=== PATIENT | male | born 1940 | race Caucasian/White ===

== ENCOUNTER 2024-05-23 02:42 | Inpatient (IN) | payer MEDICARE, SELFPAY ==
[2024-05-23] VITALS (33 sets, daily range): BP systolic 106–140; BP diastolic 50–85; PULSE 60–91; RESP 18–28; TEMP 36.4–36.8; O2SAT 69–97; BMI 19.5
--- NOTE | ~2024-05-23 | CT_ITS ---
EXAMINATION: CT diagnostic chest wo con DATE: 05/23/2024 08:30 INDICATION: Hypoxia. TECHNIQUE: Computed tomography (CT) of the chest was performed without intravenous contrast. The dose -length product was 270.42 mGy-cm. Automated exposure control and iterative reconstruction technique were employed. COMPARISON: Chest x-ray dated 05/23/2024 FINDINGS: There is extensive consolidation of the left upper, lower and right lower lobes, consistent with pneumonia. There are multiple pulmonary nodules in the right upper lobe, largest measuring 2.2 cm. There is mediastinal shift to the left. There is emphysema. There is a fissural nodule on the rig ht measuring 1.4 x 0.8 cm. There is right hydronephrosis containing high density material which may r epresent previously administered contrast. There are coarse calcifications in the left upper lobe, li tru pancreatic. There are calcified granulomas of the spleen. There is a hiatal hernia. Status post median sternotomy for CABG. There is a partially visualized endovascular stent in the aorta. There ar e multiple thoracic wedge compression fractures, most likely chronic. IMPRESSION: 1. Right upper lobe nodules measuring up to 2.2 cm, suspicious for metastatic disease. 2: Multifocal consolidation, consistent with pneumonia. 3: Bilateral pleural effusions, left greater than right. 4: Right hydronephrosis. Reviewed, dictated and finalized at location A. SERVICES PROFESSIONAL IMPRESSION: 1. Right upper lobe nodules measuring up to 2.2 cm, suspicious for metastatic d isease. 2: Multifocal consolidation, consistent with pneumonia. 3: Bilateral pleural effusions, left greater than right. 4: Right hydronephrosis.
--- NOTE | ~2024-05-23 | US_ITS ---
EXAMINATION: US renal BI DATE: 05/23/2024 19:37 INDICATION: Right hydronephrosis. TECHNIQUE: Multiple ultrasound grayscale images of the kidneys were obtained. COMPARISON: CT chest 05/23/2024 FINDINGS: The right kidney measures 12.0 x 5.0 x 6.0 cm. The left kidney measures 11.1 x 4.6 x 5.9 cm. The righ t kidney demonstrates increased parenchymal echogenicity, consistent with nephropathy. There is a 4.7 cm cyst in right kidney. There is severe right hydronephrosis. The bladder is normal. There is a sma ll volume of ascites. Calcifications in the spleen are consistent with old granulomatous disease. IMPRESSION: 1. Severe right hydronephrosis. Increased right renal parenchymal echogenicity, consistent with neph ropathy. 2. Small volume of ascites. Reviewed, dictated and finalized at location A. GATOR SHEAR OPERATOR IMPRESSION: 1. Severe right hydronephrosis. Increased right renal parenchymal echogenicity , consistent with nephropathy. 2. Small volume of ascites.
--- NOTE | ~2024-05-23 | XR_ITS ---
XR chest 1V portable 05/23/2024 03:37 Indication: Shortness of breath Procedure: AP portable chest Comparison: No prior studies for comparison. Findings: Status post median sternotomy for CABG. Extensive bilateral airspace disease bilateral. Sma ll left pleural effusion. Masslike density overlying the right hilum, suspicious for malignancy. No p neumothorax. Possible left clavicular fracture, incompletely visualized. Osteopenia. Impression: 1: Masslike density overlying the right hilum, suspicious for malignancy. 2: Extensive bilateral airspace consolidation which may represent pneumonia or edema. 3: Small left pleural effusion. 4: Possible left clavicular fracture, although incompletely visualized. Reviewed, dictated and finalized at location A. PLE JACK Impression: 1: Masslike density overlying the right hilum, suspicious for malignancy. 2: Extensive bilateral airspace consolidation which may represent pneumonia or edema. 3: Small left pleural effusion. 4: Possible left clavicular fracture, although incompletely visualized.
--- NOTE | ~2024-05-23 | CT_ITS ---
EXAMINATION: CT abdomen pelvis wo con DATE: 05/23/2024 21:35 INDICATION: Hydronephrosis. TECHNIQUE: Computed tomography (CT) of the abdomen and pelvis was performed without intravenous contr ast. Automated exposure control and iterative reconstruction technique were employed. The dose-length product was 641.23 mGy-cm. COMPARISON: Chest CT 05/23/2024 FINDINGS: The visualized portions of lung bases demonstrate scattered nodules and airspace opacities. Emphysema is noted. There is a small right and moderate-sized left pleural effusions. The heart size is normal. There are coronary artery calcifications. No pericardial effusion. 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 There is material in the esophagus. Calcifications in the liver and spleen are consistent with old granulomatous disease. The gallbladder is normal in s ize. 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 T he pancreas and adrenal glands are normal. There are cysts in right kidney measuring up to 6.4 cm. Th ere is severe right hydronephrosis and hydroureter. There is hyperdense urine in the right ureter. Th ere are 3 stones in left kidney measuring up to 3 mm. Stool distends the rectum. There is diverticulo sis of the colon without evidence of diverticulitis. The appendix is normal. There is a large volume of stool in the colon. There is a small volume of ascites. Body wall edema is noted. There is interna l fixation of proximal right femur. There is an old healed fracture of right inferior pubic ramus. Th ere are fractures of left superior and inferior pubic rami, likely subacute. There is a comminuted fr acture of left acetabulum with early callus formation. There is severe lumbar spondylosis. There is a burst fracture of L2. There is a chronic burst fracture of L1. There is a left 10th rib fracture. Th ere is a healing left eighth rib fracture. IMPRESSION: 1. Diffuse lung disease, consistent with multifocal pneumonia, left worse than right. 2. Small right and moderate-sized left pleural effusions. 3. Severe right hydronephrosis and hydroureter. Hyperdense urine may be secondary to prior contrast a dministration or hematuria. 4. Small volume of ascites. 5. Subacute comminuted fractures of left acetabulum and left superior and inferior pubic rami. 6. Acute versus subacute left 10th rib fracture. 7. L2 burst fracture, likely acute or subacute. 8. Large volume of stool in the colon with distention of the rectum. Reviewed, dictated and finalized at location A. ATTENDANT IMPRESSION: 1. Diffuse lung disease, consistent with multifocal pneumonia, left worse than right. 2. Small right and moderate-sized left pleural effusions. 3. Severe right hydronephrosis and hydroureter. Hyperdense urine may be seconda ry to prior contrast administration or hematuria. 4. Small volume of ascites. 5. Subacute comminuted fractures of left acetabulum and left superior and infer ior pubic rami. 6. Acute versus subacute left 10th rib fracture. 7. L2 burst fracture, likely acute or subacute. 8. Large volume of stool in the colon with distention of the rectum.
--- NOTE | 2024-05-23 02:54 | ED.SOB ---
HPI - SOB/Dyspnea General Chief Complaint: Shortness of Breath/Dyspnea Stated Complaint: hypoxia Time Seen by Provider: 05/23/24 02:53 Source: patient, EMS and RN notes reviewed Mode of arrival: EMS History of Present Illness HPI Narrative: EMS notes that they were called for patient with shortness of breath who was initially hypoxic, saturating in the 70s on room air. History of COPD, supposed to be on oxygen but it was off and he reportedly keeps taking it off. He was initially altered, alert oriented x2. He denies any diarrhea. He is a new patient to the facility where he is coming from, having just been admitted yesterday. EMS noted that he improved 88% on 15 L non-rebreather mask. He had complained of pain all over although this appears to be chronic. He also has wounds all over. He notes that he has to have a bowel movement and he states that he has these frequently although they are formed, denies diarrhea. Patient states for his history of COPD he has never required BiPAP. He denies any chest pain but he has had a cough. It is initially unclear if patient is on anticoagulation. Related Data Allergies Allergy/AdvReac Type Severity Reaction Status Date / Time adhesive tape Allergy Unknown Verified 05/23/24 03:32 baclofen Allergy Unknown Verified 05/23/24 03:32 celecoxib Allergy Unknown Verified 05/23/24 03:32 clopidogrel (From Plavix) Allergy Unknown Verified 05/23/24 03:32 Iodinated Contrast Media Allergy Unknown Verified 05/23/24 03:32 isosorbide Allergy Unknown Verified 05/23/24 03:32 ketorolac Allergy Unknown Verified 05/23/24 03:32 rofecoxib Allergy Unknown Verified 05/23/24 03:32 tramadol Allergy Unknown Verified 05/23/24 03:32 [facility] Past Medical History Medical History Other hyperlipidemia residential (current) use of antibiotics residential (current) use of anticoagulants Localized swelling, mass and lump, unspecified Other constipation Gastro-esophageal reflux disease without esophagitis Other secondary hypertension Chronic pain syndrome Vitamin D deficiency, unspecified Hypoxia O2 dependent COPD (chronic obstructive pulmonary disease) Hip fracture, left Social History Social History Social History: Never Code Status: No CPR per half-way documentation; patient also states no intubation in conversation 05/23/24 Smoking status: Current every day smoker Living arrangements: half-way Additional living arrangements comments: [facility] since 05/22/24 Occupation/Education: retired Spiritual care concerns: No (Holiness) Exam Narrative: GENERAL: Chronically ill-appearing, HEAD: Normocephalic, atraumatic. EYES: Non injected, non icteric ENT: Nares clear, no rhinorrhea or epistaxis. NECK: Supple. CHEST: Speaking in full sentences. Tachypneic. Coarse breath sounds though poor air movement HEART: Regular rate and rhythm. ABDOMEN: Soft, nondistended. EXTREMITIES: Normal range of motion. RUE edema. SKIN: Warm, dry. Multiple scattered wounds/abrasions, many weeping. NEURO: No focal deficits. Alert and oriented x4 for questions asked by RN at bedside. PSYCH: Congruent mood and affect. Cantankerous. Course Vital Signs Vital signs: Vital Signs Temperature 97.6 F 05/23/24 02:48 Pulse Rate 88 05/23/24 02:48 Respiratory Rate 26 H 05/23/24 02:48 Blood Pressure 140/85 05/23/24 02:48 Pulse Oximetry 86 L 05/23/24 02:48 Oxygen Delivery Non-Rebreather Mask 05/23/24 02:48 Oxygen Flow Rate 15 05/23/24 02:48 Temperature 97.6 F 05/23/24 07:00 Pulse Rate 88 05/23/24 08:00 Respiratory Rate 27 H 05/23/24 08:00 Blood Pressure 137/66 05/23/24 08:00 Pulse Oximetry 90 05/23/24 08:00 Oxygen Delivery Room Air 05/23/24 06:58 Oxygen Flow Rate 15 05/23/24 02:48 MDM - SOB/Dyspnea MDM Narrative Medical decision making narrative: Patient presents with report of shortness of breath and hypoxia, initially saturating in the 70s on room air at which time he was alert oriented x2 upon EMS assessment. He denies any chest pain but states that he has had a cough. He has a history of COPD and is supposed to be on supplemental oxygen although reportedly keeps taking it off. In the emergency department he is afebrile with vital signs notable for tachypnea as well as hypoxia even on NRB. Patient is alert and oriented x4 and thus able to make his own decisions. He does not otherwise appear altered at this time although he had been confused and altered for EMS prior to oxygen being placed. penitentiary documentation lists no CPR. When patient is explicitly asked, he states he does not want CPR, would not want intubation or mechanical ventilation. He has never required BiPAP for his COPD previously and he states he WOULD NOT want this, repeatedly saying NO loudly. I won't repeat it again. I reassessed and discussed with patient the need for wearing oxygen. He initially verifies understanding and is amenable to be replacing this. We discussed that given he is refusing several interventions and if his oxygen saturation continues to decline, his brain and other organs will not get the oxygen and nutrients that they need and he will . He verifies understanding. When asked what can be done to make him more comfortable, he demands cold Sprite in addition to luana crackers. These are provided. He then requests milk. Normocytic anemia. BNP is elevated suggestive of heart failure. Chest x-ray is with multiple findings, inconclusive. CT chest without contrast (given allergy) is ordered as is a NM scan given elevated dimer. However, patient is refusing all further work up measures/medications/etc. We discussed that he is likely to with a time period relatively quickly especially if he continues to take his oxygen off. He is able to verify that he understands the severity of his condition. We discussed the possibility of getting care coordination and hospice involved. He states he has heard of hospice before but does not want them. He is fine with dying either in the ED if it occurs or being admitted and passing while hospitalized. When we discussed being admitted by calling the economic historian hospitalist, he states Do it now. Discussed with hospitalist Dr Mcneal who recommends getting care coordination to discuss discharging back to facility with comfort measures whether with or not on hospice. Discussed with care coordination Jennifer. At this time however, patient is calm and courteous. He states he does want to get better and would be fine with any medications or imaging to pursue further workup. I did reassess patient at bedside and patient is somewhat somnolent however arouses to verbal stimuli and is able to say on multiple occasions that he is fine with proceeding with further workup. I talked with him about the various options and had him talk back in terms of what had been explained. He clearly stated I want further investigation. CT chest is re-ordered. Will defer ordering NM study as, at this time, I can see that patient is on Eliquis (apixaban) and [facility] does list chronic use of anticoagulation. He has presumably been receiving this medication while he was hospitalized and while briefly admitted at [facility]. Thus, less likely PE. CT scan shows bilateral pleural effusions as well as pneumonia. Will initiate broad-spectrum antibiotics in the form of vancomycin, ceftriaxone, and azithromycin. Patient is again discussed with on-call hospitalist Dr Mcneal. I reassess the patient and told him that his CT scan shows pneumonia. I discussed that we would still continue to honor his wishes of no CPR or intubation but could attempt to aggressively fight this infection with antibiotics. He does tell the nurse that if needed he would be open to BIPAP. We also discussed the findings of the mass/nodules on his CT scan. He states this is new to him and he was not aware of this previously and has had no prior workup for this. He concludes the interaction saying Thank you, doctor. We discussed that his hip fracture and chronic pain also need addressed with pain medication; BP ok so oxy ordered. PRN bipap order placed. Patient will require IMU admission. Differential Diagnosis Differential diagnosis: Likely acute exacerbation of chronic obstructive airways disease, congestive heart failure, community acquired pneumonia, pulmonary embolism (considered (see above)) and other (acute viral syndrome) Lab Data Attestation: I reviewed the patient's lab results. 05/23/24 03:14 05/23/24 03:14 Labs: Lab Results 05/23/24 Range/Units 03:14 WBC 7.0 (4.5-10.0) K/mm3 RBC 3.71 L (4.6-6.20) M/mm3 Hgb 11.2 L (14.0-18.0) g/dL Hct 34.8 L (42.0-52.0) % MCV 93.8 (80-100) fl MCH 30.2 (26-34) pg MCHC 32.2 (32-36) g/dl RDW 17.1 H (11.5-14.5) % Plt Count 197 (150-375) k/mm3 MPV 9.1 (7.4-10.4) fl Immature Gran % (Auto) 0.6 H (0-0.5) % Neut % (Auto) 78.8 H (45.5-73.1) % Lymph % (Auto) 14.8 L (18.3-44.2) % Mcculloch % (Auto) 4.9 (2.6-8.5) % Eos % (Auto) 0.6 (0-4.4) % Baso % (Auto) 0.3 (0.2-1.2) % Lymph # (Auto) 1.03 (0.9-3.2) K/mm3 Mcculloch # (Auto) 0.3 (0.1-0.6) K/mm3 Eos # (Auto) 0.0 (0-0.3) K/mm3 Baso # (Auto) 0.0 (0.0-0.1) K/mm3 Abs Immat Gran (auto) 0.04 H (0.00-0.031) K/mm3 Absolute Neuts (auto) 5.5 (1.3-6.7) K/mm3 Absolute Nucleated RBC 0.000 (0.0-0.012) K/mm3 Nucleated RBC % 0.0 (0.0-0.2) % D-Dimer 6.02 H (<0.48) ug/mL Sodium 138 (137-145) mmol/L Potassium 4.1 (3.4-5.0) mmol/L Chloride 105 (98-107) mmol/L Carbon Dioxide 26 (22-30) mmol/L Anion Gap 7 (4-12) mmol/L BUN 19 (9-20) mg/dL Creatinine 1.08 (0.7-1.3) mg/dL Estim Creat Clear Calc 44 ml/min Estimated GFR > 60 (59 - ) Glucose 118 H (65-110) mg/dL Lactic Acid 1.3 (0.7-2.0) mmol/L Calcium 8.4 (8.4-10.2) mg/dL Magnesium 1.8 (1.6-2.3) mg/dL Total Bilirubin 0.8 (0.2-1.3) mg/dL AST 29 (17-59) U/L ALT 16 (6-50) U/L Alkaline Phosphatase 202 H (38-126) U/L Troponin I 0.013 (0.000-0.034) ng/mL NT-Pro-B Natriuret Pep 5250 H (19.9-100) pg/mL Total Protein 7.0 (6.3-8.2) g/dL Albumin 3.0 L (3.5-5.1) g/dL Influenza A (RT-PCR) Negative (Negative) Influenza B (RT-PCR) Negative (Negative) RSV (RT-PCR) Negative (Negative) SARS-CoV-2 RNA (RT-PCR) Negative (Negative) ABG Data ABG results: 05/23/24 03:27 VBG pH 7.404 H* VBG pCO2 40.7 L VBG pO2 < 27.0 L VBG HCO3 24.9 O2 Delivery Device Non-rebreather mask O2 Liters/Min 15.0 FiO2 100 Imaging Data Radiologist's impression: Impressions Chest X-Ray 05/23/24 05:30 Impression: 1: Masslike density overlying the right hilum, suspicious for malignancy. 2: Extensive bilateral airspace consolidation which may represent pneumonia or edema. 3: Small left pleural effusion. 4: Possible left clavicular fracture, although incompletely visualized. Chest CT 05/23/24 08:55 IMPRESSION: 1. Right upper lobe nodules measuring up to 2.2 cm, suspicious for metastatic disease. 2: Multifocal consolidation, consistent with pneumonia. 3: Bilateral pleural effusions, left greater than right. 4: Right hydronephrosis. ECG Data EKG #1: Attestation: I personally reviewed and interpreted this ECG as follows: ECG completion date: 05/23/24 ECG completion time: 02:55 Interpretation: Irregularly irregular rhythm suggestive of atrial fibrillation although very final complex on the EKG strip does appear to have P-waves. Rate 94 beats per minute. QRS 86. QT/QTC 329/381. No T-wave inversions. Discharge Plan Discharge Clinical Impression: Normocytic anemia, Hypoxemia, COPD (chronic obstructive pulmonary disease), Heart failure, Alkaline phosphatase elevation, Hypoalbuminemia, Shortness of breath, Bilateral pleural effusion, Right upper lobe pulmonary nodule, Pneumonia Hydronephrosis Qualifiers: Hydronephrosis type: unspecified Qualified Code(s): N13.30 - Unspecified hydronephrosis Patient Disposition: Still a Patient Condition: Serious Patient Language: Japanese Follow-up/Referrals: Gabby,MD Chivo [Primary Care Provider] -
--- NOTE | 2024-05-23 02:55 | ECG_ITS ---
Test Date: 2024-05-23 02:55:59 Measurements Intervals [place] Rate: 94 P: 0 VT: 0 QRS: 35 QRSD: 86 T: 91 QT: 329 QTc: 413 Interpretive Statements ATRIAL FIBRILLATION INDETERMINATE AXIS POSSIBLE ANTERIOR MYOCARDIAL INFARCTION , PROBABLY OLD [30 ms Q WAVE IN V3/V4, OR R < 0.2 mV IN V4] ABNORMAL RHYTHM ECG No previous ECG available for comparison Electronically Signed On 05-23-2024 14:31:18 [employer] by Jeff Villegas M.D.
[2024-05-23] MEDS: methylPREDNISolone SOD SUCC 125 MG VIAL IV PUSH (03:22)
[2024-05-23] MEDS: MAGNESIUM SULF 2 GM/WATER 50ML 2 GM/50 ML BAG IVPB (03:23)
[2024-05-23 03:34] LABS: Fractional Inspired Oxygen 100 %; HCO3 VBG 24.9 mEq/l (24.0-30.0); PCO2 VBG 40.7 mmHg (42.0-48.0)
[2024-05-23 03:37] LABS: Device NON-REBREATHER MASK; PO2 VBG < 27.0 mmHg (35.0-45.0); pH VBG 7.404 (7.300-7.400)
--- NOTE | 2024-05-23 03:39 | PC.NURSE ---
RN emptied pt urianry catheter leg bag at this time. Pt urinary catheter bag was emptied a total of 1,300 ml so far.
[2024-05-23] MEDS: IPRATROPIUM 0.5 MG/ALBUTEROL SULFATE 2.5 MG AMPUL.NEB 3 ML INHALATION (03:42)
[2024-05-23 03:45] LABS: Basophils Percent Auto 0.3 % (0.2-1.2); Eosinophils Percent Auto 0.6 % (0-4.4); Hematocrit 34.8 % (42.0-52.0); Hemoglobin 11.2 g/dL (14.0-18.0); Immature Granulocyte Absolute 0.04 K/mm3 (0.00-0.031); Immature Granulocyte Percent A 0.6 % (0-0.5); Lymphocytes Absolute Auto 1.03 K/mm3 (0.9-3.2); Lymphocytes Percent Auto 14.8 % (18.3-44.2); Mean Corpuscular HGB Conc 32.2 g/dl (32-36); Mean Corpuscular Hemoglobin 30.2 pg (26-34); Mean Corpuscular Volume 93.8 fl (80-100); Mean Platelet Volume 9.1 fl (7.4-10.4); Monocytes Absolute Auto 0.3 K/mm3 (0.1-0.6); Monocytes Percent Auto 4.9 % (2.6-8.5); Neutrophils Absolute Auto 5.5 K/mm3 (1.3-6.7); Neutrophils Percent Auto 78.8 % (45.5-73.1); Platelet Count Result 197 k/mm3 (150-375); Red Blood Count 3.71 M/mm3 (4.6-6.20); Red Cell Distribution Width 17.1 % (11.5-14.5)
[2024-05-23 03:53] LABS: Alanine Aminotransferase 16 U/L (6-50); Alkaline Phosphatase 202 U/L (38-126); Anion Gap 7 mmol/L (4-12); Aspartate Amino Transferase 29 U/L (17-59); Bilirubin,Total 0.8 mg/dL (0.2-1.3); Blood Urea Nitrogen 19 mg/dL (9-20); Calcium 8.4 mg/dL (8.4-10.2); Carbon Dioxide 26 mmol/L (22-30); Chloride 105 mmol/L (98-107); Estimated CRCL calculation 44 ml/min; Estimated Glomerular Filt Rate > 60; Glucose 118 mg/dL (65-110); Lactic Acid Reflex 1.3 mmol/L (0.7-2.0); Magnesium 1.8 mg/dL (1.6-2.3); Potassium 4.1 mmol/L (3.4-5.0); Sodium 138 mmol/L (137-145)
[2024-05-23 04:04] LABS: NT Pro B Type Natriuretic Pept 5250 pg/mL (19.9-100); Troponin I 0.013 ng/mL (0.000-0.034)
--- NOTE | 2024-05-23 04:04 | PC.NURSE ---
This RN called [facility] at [place] and spoke with a nurse there that states patient was just admitted at [facility] yesterday for respiratory issues after being at [facility] since 04/18. Patient also has a broken hip. Nurse states the patient did not come with a code status form, and she was unable to get ahold of POA.
[2024-05-23 04:17] LABS: D Dimer 6.02 ug/mL (<0.48)
[2024-05-23 04:18] LABS: Influenza A QL RT-PCR Negative (Negative); Influenza B QL RT-PCR Negative (Negative); RSV RNA, RT-PCR Negative (Negative); SARS-CoV-2 RNA PCR Negative (Negative)
--- NOTE | 2024-05-23 06:26 | PC.NURSE ---
Patient refusing to go to radiology for VQ scan, states I'll do it tomorrow. Patient also refusing lasix. Dr. Prince made aware.
--- NOTE | 2024-05-23 06:55 | PC.NURSE ---
Patient tore IV out, refuses another one. Dr. Prince at bedside speaking to patient about hospice care. Linens changed.
[2024-05-23] MEDS: FUROSEMIDE INJ 40 MG/4 ML VIAL 20 MG IV PUSH (09:09)
[2024-05-23] MEDS: ALBUTEROL SULFATE NEB 2.5 MG/3 ML INH INHALATION ×3 (09:24→19:14)
--- NOTE | 2024-05-23 09:59 | P.HP_ITS ---
H&P: HPI History of Present Illness Date/Time: 05/23/24 09:59 Chief Complaint: Shortness of Breath/Dyspnea Narrative: EMS notes that they were called for patient with shortness of breath who was initially hypoxic, saturating in the 70s on room air. History of COPD, supposed to be on oxygen but it was off and he reportedly keeps taking it off. He was initially altered, alert oriented x2. He denies any diarrhea. He is a new patient to the facility where he is coming from, having just been admitted yesterday. EMS noted that he improved 88% on 15 L non-rebreather mask. He had complained of pain all over although this appears to be chronic. He also has wounds all over.He notes that he has to have a bowel movement and he states that he has these frequently although they are formed, denies diarrhea. Patient states for his history of COPD he has never required BiPAP. He denies any chest pain but he has had a cough.It is initially unclear if patient is on anticoagulation. Pertinent Labs in ED: Hemoglobin 11.2, hematocrit 34.8, platelet 197, sodium 138, potassium 4.1, BUN 19, creatinine 1.08, BNP 5 250. Influenza, RSV, COVID negative Imaging : Chest CT: IMPRESSION: 1. Right upper lobe nodules measuring up to 2.2 cm, suspicious for metastatic disease. 2: Multifocal consolidation, consistent with pneumonia. 3: Bilateral pleural effusions, left greater than right. 4: Right hydronephrosis. EKG AFib The patient is evaluated at bedside . he reports living at home with help of care transitions nurse. He has niece who lives in [place] but he says medical decision are made only by him.He reports of having multiple stents in the heart and carotid by pass surgery. He is a current smoker but denies using oxygen at home.Remote history of CVA as well. Patient is sometimes get angry during the evaluation and yelled at the care transitions nurse. I insisted he should be respectful to hospital employees. Order renal ultrasound due to right hydronephrosis, echocardiogram, PSA and started lasix 40 mg IV BID. Consulted oncology and if need will consult Urology. Nurse called around 17:30 and reported he had episod of vomiting after his meal. Keeping him NPO and swallow eval tomorrow. [facility] Past Medical History Medical History Other hyperlipidemia long-term (current) use of antibiotics long-term (current) use of anticoagulants Localized swelling, mass and lump, unspecified Other constipation Gastro-esophageal reflux disease without esophagitis Other secondary hypertension Chronic pain syndrome Vitamin D deficiency, unspecified Hypoxia O2 dependent COPD (chronic obstructive pulmonary disease) Hip fracture, left Social History Social History Social History: Never Code Status: No CPR per senior living documentation; patient also states no intubation in conversation 05/23/24 Smoking status: Current every day smoker Living arrangements: senior living Additional living arrangements comments: [facility] since 05/22/24 Occupation/Education: retired Spiritual care concerns: No (Christian) Meds Home Medications and Allergies Home Medications ?Medication ?Instructions ?Recorded ?Confirmed ?Type amoxicillin 875 mg-potassium 1 tablet PO BID 05/23/24 05/23/24 History clavulanate 125 mg tablet apixaban 2.5 mg tablet (Eliquis) 2.5 mg PO BID 05/23/24 05/23/24 History aspirin 81 mg tablet,delayed 81 mg PO DAILY 05/23/24 05/23/24 History release (Adult Aspirin Regimen) bisacodyl 10 mg rectal suppository 10 mg RECTAL DAILY PRN constipation 05/23/24 05/23/24 History (Dulcolax (bisacodyl)) cholecalciferol (vitamin D3) 25 25 mcg PO DAILY 05/23/24 05/23/24 History mcg (1,000 unit) capsule (Vitamin D3) cyclobenzaprine 5 mg tablet 5 mg PO TID 05/23/24 05/23/24 History lidocaine 5 % topical patch 2 patch transdermal Q12H 05/23/24 05/23/24 History lisinopril 20 mg tablet 20 mg PO DAILY 05/23/24 05/23/24 History metoprolol tartrate 25 mg tablet 25 mg PO DAILY 05/23/24 05/23/24 History oxycodone 5 mg tablet 5 mg PO Q4H PRN pain 05/23/24 05/23/24 History pantoprazole 40 mg granules 40 mg PO BID 05/23/24 05/23/24 History delayed-release for susp in packet (Protonix) polyethylene glycol 3350 17 gram 17 g PO BID 05/23/24 05/23/24 History oral powder packet (Miralax) rosuvastatin 20 mg tablet 10 mg PO DAILY 05/23/24 05/23/24 History senna-docusate sodium tablet 1 tablet PO BID 05/23/24 05/23/24 History Allergies Allergy/AdvReac Type Severity Reaction Status Date / Time adhesive tape Allergy Unknown Verified 05/23/24 03:32 baclofen Allergy Unknown Verified 05/23/24 03:32 celecoxib Allergy Unknown Verified 05/23/24 03:32 clopidogrel (From Plavix) Allergy Unknown Verified 05/23/24 03:32 Iodinated Contrast Media Allergy Unknown Verified 05/23/24 03:32 isosorbide Allergy Unknown Verified 05/23/24 03:32 ketorolac Allergy Unknown Verified 05/23/24 03:32 rofecoxib Allergy Unknown Verified 05/23/24 03:32 tramadol Allergy Unknown Verified 05/23/24 03:32 Vital Signs Vital Signs - 24 hr 05/23/24 02:48 05/23/24 03:42 05/23/24 03:49 Temperature 97.6 F Pulse Rate 88 75 90 Respiratory Rate 26 H 21 H 28 H Blood Pressure 140/85 Pulse Oximetry 86 L Oxygen Delivery Non-Rebreather Mask Oxygen Flow Rate 15 05/23/24 05:00 05/23/24 06:55 05/23/24 06:58 Temperature Pulse Rate 86 85 Respiratory Rate 27 H 25 H Blood Pressure 130/58 L Pulse Oximetry 84 L 69 L 75 L Oxygen Delivery Room Air Oxygen Flow Rate 05/23/24 07:00 05/23/24 07:30 05/23/24 08:00 Temperature 97.6 F Pulse Rate 82 78 88 Respiratory Rate 18 18 27 H Blood Pressure 118/56 L 122/52 L 137/66 Pulse Oximetry 75 L 75 L 90 Oxygen Delivery Oxygen Flow Rate 05/23/24 09:25 05/23/24 09:26 05/23/24 09:27 Temperature Pulse Rate 82 Respiratory Rate 22 H Blood Pressure Pulse Oximetry 96 96 Oxygen Delivery Non-Rebreather Mask Non-Rebreather Mask Oxygen Flow Rate 15 15 05/23/24 09:34 Temperature Pulse Rate 85 Respiratory Rate 20 Blood Pressure Pulse Oximetry Oxygen Delivery Oxygen Flow Rate H&P: Results Labs Labs: Short CBC 05/23/24 Range/Units 03:14 WBC 7.0 (4.5-10.0) K/mm3 Hgb 11.2 L (14.0-18.0) g/dL Hct 34.8 L (42.0-52.0) % Plt Count 197 (150-375) k/mm3 BMP 05/23/24 03:14 Sodium 138 Potassium 4.1 Chloride 105 Carbon Dioxide 26 BUN 19 Creatinine 1.08 Glucose 118 H Calcium 8.4 Cardiac Enzymes 05/23/24 Range/Units 03:14 Troponin I 0.013 (0.000-0.034) ng/mL Liver Function 05/23/24 Range/Units 03:14 Total Bilirubin 0.8 (0.2-1.3) mg/dL AST 29 (17-59) U/L ALT 16 (6-50) U/L Alkaline Phosphatase 202 H (38-126) U/L Albumin 3.0 L (3.5-5.1) g/dL Assessment and Plan Assessment and plan (1) Hydronephrosis: Qualifiers: Hydronephrosis type: unspecified Qualified Code(s): N13.30 - Unspec ified hydronephrosis Code(s): N13.30 - Unspecified hydronephrosis Status: Acute (2) COPD (chronic obstructive pulmonary disease): Code(s): J44.9 - Chronic obstructive pulmonary disease, unspecified Status: Acute (3) Heart failure: Code(s): I50.9 - Heart failure, unspecified Status: Acute (4) Bilateral pleural effusion: Code(s): J90 - Pleural effusion, not elsewhere classified Status: Acute Plan COPD -Number of exacerbation -Smoking Hx -Vaccination Hx -long-term O2 -Comorbid conditions including CHF -COPD Exacerbation requiring BiPAP -Pulmonology workup done as OP -Home O2 -ECHO ordered -D/C Vancomycin since Nasal MRSA not detected -Started on Ceftriaxone and Azithromycin CHF -BNP 5250 -cardiology consulted -IV Lasix b.i.d. -monitor renal function during diuresis -echocardiogram pending -EKG AFIB -Chest CT: Pulmonary edema -Lipid panel, TSH, liver function test. -Optimize René inhibitors, beta-blockers, ARNI -Daily weights. -fluid restriction -Strict I&O's -Optimize blood pressure less than 130/80. -Fall risk assessment. -continue lisinopril A.Fib -Eliquis 2.5 p.o. b.i.d. -continue metoprolol tartrate 25 p.o. b.i.d. -ordered a TSH Pulmonary Nodule -ordered CT abdomen pelvis -ordered PSA -consulted Hem-Onc Right hydronephrosis -Will consider Urology -ordered abdomen pelvis and CT -Ordered ultrasound kidneys Hospitalist MIPS Advance Care Plan I have confirmed that the patient's Advanced Care Plan is present, code status is documented, or surrogate decision maker is listed in patient medical record.: Yes Medication Reconciliation I have utilized all available resources to obtain, update and review the patients current medications (includes all prescriptions, OTC, herbals, cannabis, and nutritional supplements).: Yes
[2024-05-23 10:47] LABS: MRSA (PCR) NOT DETECTED (NOT DETECTE)
[2024-05-23] MEDS: AZITHROMYCIN 500 MG/NS 250 ML 500 MG/250 ML BAG 250 MG IVPB (11:30)
--- NOTE | 2024-05-23 11:44 | ADMGEN ---
This patient, Pradip Hernandez, was admitted to IMU Room 203-01. Patient/family oriented to hospital policies and general routines including ID bracelet, bed and alarms, visiting hours, pain management, procedures, bathroom and other care routines, personal items, smoking policy, room service/diet, and visiting hours. Information on how to activate the Rapid Response Team has been discussed. Patient/Family are encouraged to report perceived risks to care and to ask questions if they do not understand what they are told or what they should do. Report received from BESSIE Akhtar at 1045, patient arrived via stretcher at 1105 without any issues.
[2024-05-23] MEDS: VANCOMYCIN 1,750 MG/NS 500 ML 1,750 MG/500 ML BAG 250 MG IVPB (13:04)
--- NOTE | 2024-05-23 13:10 | PC.NURSE ---
RN at bedside assisting patient with lunch. Patient becoming increasingly angry because RN not feeding him fast enough. RN discussed aspiration risk, after patient displayed signs of aspiration. Patient angry, swearing at RN.
[2024-05-23 16:51] LABS: Cholesterol 119 mg/dL (0-200); HDL Direct 42 mg/dL; Triglycerides 137 mg/dL (<150)
[2024-05-23 16:55] LABS: Hemoglobin A1C 5.7 % (<5.7)
[2024-05-23 17:02] LABS: LDL Cholesterol Direct 55 mg/dL
[2024-05-23] MEDS: ONDANSETRON INJ 4 MG/2 ML VIAL IV PUSH (17:30)
--- NOTE | 2024-05-23 17:43 | PC.NURSE ---
Dr. GUERRA notified of emesis after dinner. Zofran IVP given. Patient tachycardic, no s/s of desaturation. Patient NPO, pending swallow evaluation.
[2024-05-23] MEDS: DEXTROSE 5%/0.45% SOD CHL 1,000 ML 100 ML IV CONT (18:44)
[2024-05-23] MEDS: FUROSEMIDE INJ 40 MG/4 ML VIAL IV PUSH (18:45)
[2024-05-23 21:03] LABS: Total Triiodothyronine (T3) 0.75 NG/ML (0.97-1.69)
[2024-05-24] VITALS (18 sets, daily range): BP systolic 101–133; BP diastolic 50–68; PULSE 58–85; RESP 16–18; TEMP 36.4–36.7; O2SAT 90–98
--- NOTE | 2024-05-24 | ECHO_ITS ---
Patient Info Name: Pradip Hernandez Age: 83 years : 1940 Gender: Male Ht: 61 in Wt: 142 lbs BSA: 1.68 m2 HR: 71 bpm BP: 125 / 83 mmHg Technical Quality: Good Exam Date: 05/24/2024 8:51 AM Exam Location: Echo Lab Exam Room: [facility] Patient Status: Inpatient Admit Date: 05/23/2024 Staff Ordering Physician: Boy Shanks MD Stitch Bonder Machine Operator Helper: Raina Gonzales RDCS Attending Provider: Cameron Mcneal MD Exam Type: CA echo doppler color flow Study Info Indications - CHF Complete two-dimensional, color flow and Doppler transthoracic echocardiogram is performed. Summary 1. Complete two-dimensional, color flow and Doppler transthoracic echocardiogram is performed. 2. Left ventricular chamber dimension is normal. 3. Left ventricular systolic function is normal, estimated at 60-65%. 4. The left ventricular diastolic function is grade I diastolic dysfunction. 5. E/e' 10 is mildly elevated. 6. Left atrial chamber dimension is moderately enlarged. 7. There is moderate aortic valve sclerosis. 8. There is mild to moderate mitral valve regurgitation. 9. There is mild tricuspid valve regurgitation. 10. Severe pulmonary hypertension, estimated pulmonary arterial systolic pressure is 92 mmHg. 11. There is trace pulmonic regurgitation. 12. Dilated inferior vena cava with >50% collapse upon inspiration consistent with elevated right atrial pressure, 10 mmHg. Left Ventricle E/e' 10 is mildly elevated. Left ventricular chamber dimension is normal. Left ventricular systolic function is normal, estimated at 60-65%. The left ventricular diastolic function is grade I diastolic dysfunction. Right Ventricle Right ventricular systolic function is normal and with normal TAPSE 2.0 cm. Right ventricular chamber dimension is normal. Left Atria Left atrial chamber dimension is moderately enlarged. Right Atria Right atrial chamber dimension is normal. Aortic Valve The aortic valve is trileaflet. There is moderate aortic valve sclerosis. There is no aortic valve stenosis. There is no aortic valve regurgitation. Pulmonic Valve There is trace pulmonic regurgitation. Mitral Valve There is no mitral valve stenosis. There is mild to moderate mitral valve regurgitation. Tricuspid Valve There is mild tricuspid valve regurgitation. Severe pulmonary hypertension, estimated pulmonary arterial systolic pressure is 92 mmHg. Pericardium/Pleural There is no pericardial effusion. Inferior Vena Cava Dilated inferior vena cava with >50% collapse upon inspiration consistent with elevated right atrial pressure, 10 mmHg. Aorta The aortic root size at the sinus of Valsalva is normal. Left Ventricular Outflow Tract Name Value Normal LVOT 2D LVOT Diameter 2.6 cm LVOT Doppler LVOT Peak Gradient 5 mmHg LVOT Mean Gradient 2 mmHg LVOT VTI 24 cm LVOT VTI/AV VTI Ratio 0.6 LVOT Stroke Volume 129 ml LVOT CO 7.1 l/min LVOT CI 4.2 l/min/m2 Pulmonic Valve Name Value Normal PV Doppler PV Peak Gradient 3 mmHg PV Regurgitation Doppler [place] Peak End Diastolic Velocity 181 cm/s Mitral Valve Name Value Normal MV Doppler MV Peak Gradient 5 mmHg MV Mean Gradient 2 mmHg MV Decel Grayson 126 cm/s2 MV PHT 126 ms MV Area (PHT) 1.7 cm2 4.0-5.0 MV Area (Cont Eq VTI) 4.0 cm2 MV Regurgitation Doppler MR Peak Gradient 168 mmHg MV Diastolic Function MV E Peak Velocity 55 cm/s MV A Peak Velocity 96 cm/s MV E/A 0.6 MV Decel Time 435 ms MV Annular TDI MV E/e' (Septal) 20.7 <=8.0 MV E/e' (Lateral) 7.3 <=8.0 MV E/e' (Average) 14.0 Tricuspid Valve Name Value Normal TV Regurgitation Doppler TR Peak Velocity 453 cm/s TR Peak Gradient 82 mmHg Estimated PAP/RSVP RA Pressure 10 mmHg <=5 PA Systolic Pressure 92 mmHg <36 RV Systolic Pressure 92 mmHg <36 Aortic Valve Name Value Normal AV Doppler AV Peak Velocity 159 cm/s AV Peak Gradient 10 mmHg AV Mean Gradient 5 mmHg AV VTI 37 cm AV Area (Cont Eq VTI) 3.5 cm2 >=3.0 AV Area (Cont Eq Cleve) 3.6 cm2 AV Regurgitation 2D LVOT Area 5.4 cm2 Ventricles Name Value Normal LV Dimensions 2D/MM IVS Diastolic Thickness (2D) 1.0 cm 0.6-1.0 LVID Diastole (2D) 5.0 cm 4.2-5.8 LVIW Diastolic Thickness (2D) 0.9 cm 0.6-1.0 LVID Systole (2D) 3.7 cm 2.5-4.0 LVOT Diameter 2.6 cm LV Mass (2D Cubed) 161.66 g 88.00-224.00 LV Mass Index (2D Cubed) 96 g/m2 49-115 Relative Wall Thickness (2D) 0.35 LV Fractional Shortening/Ejection Fraction 2D/MM LV Fractional Shortening (2D) 26 % 25-43 LV EF (2D Teicholz) 51 % 52-72 LV Diastolic Volume (4C MOD) 116 ml LV EF (4C MOD) 59 % LV Diastolic Length (4C) 7.7 cm LV Systolic Length (4C) 6.8 cm LV Stroke Volume (4C MOD) 68 ml Atria Name Value Normal LA Dimensions LA Volume (4C A-L) 95 ml LA Volume (BP A-L) 87 ml RA Dimensions RA Area (4C) 17.2 cm2 <=18.0 Report Signatures
[2024-05-24] MEDS: ALBUTEROL SULFATE NEB 2.5 MG/3 ML INH INHALATION ×4 (01:51→20:40)
[2024-05-24] MEDS: DEXTROSE 5%/0.45% SOD CHL 1,000 ML 100 ML IV CONT (06:08)
[2024-05-24] MEDS: WATER FOR IRRIGATION, STERILE 1,000 ML BOTTLE 1000 ML (06:09)
[2024-05-24] MEDS: SENNA/DOCUSATE SODIUM TABLET 1 TAB PO (08:02)
[2024-05-24] MEDS: ASPIRIN 81 MG ENTERIC TABLET PO (08:02)
[2024-05-24] MEDS: lisinopriL 20 MG TABLET PO (08:02)
[2024-05-24] MEDS: CYCLOBENZAPRINE HCL 5 MG TABLET PO ×2 (08:02→17:11)
[2024-05-24] MEDS: PANTOPRAZOLE 40 MG TABLET PO (08:02)
[2024-05-24] MEDS: APIXABAN 2.5 MG TABLET PO (08:02)
[2024-05-24] MEDS: METOPROLOL TARTRATE 25 MG TABLET PO (08:03)
[2024-05-24] MEDS: FUROSEMIDE INJ 40 MG/4 ML VIAL IV PUSH ×2 (08:04→17:12)
[2024-05-24] MEDS: cefTRIAXone 2 GM/NS 100 ML 2 GM/100 ML BAG IVPB (08:09)
--- NOTE | 2024-05-24 08:16 | PC.NURSE ---
pt is irate and verbally abusive to staff, insisting he speak with the physician about breakfast, pt took po meds without difficulty with water, pt then reports he feels them coming back up and had episode of emesis, pt reminded to keep arm straight so iv fluids can continue without machine disturbing him, will continue to monitor
[2024-05-24 08:48] LABS: Hemoglobin 8.3 g/dL (14.0-18.0); Mean Corpuscular HGB Conc 31.9 g/dl (32-36); Mean Corpuscular Hemoglobin 30.2 pg (26-34); Mean Corpuscular Volume 94.5 fl (80-100); Mean Platelet Volume 9.2 fl (7.4-10.4); Platelet Count Result 152 k/mm3 (150-375); Red Blood Count 2.75 M/mm3 (4.6-6.20); Red Cell Distribution Width 16.6 % (11.5-14.5); White Blood Count 4.5 K/mm3 (4.5-10.0)
[2024-05-24 09:06] LABS: Alanine Aminotransferase 12 U/L (6-50); Albumin Level 2.2 g/dL (3.5-5.1); Alkaline Phosphatase 123 U/L (38-126); Anion Gap 4 mmol/L (4-12); Aspartate Amino Transferase 25 U/L (17-59); Bilirubin,Total 0.5 mg/dL (0.2-1.3); Blood Urea Nitrogen 21 mg/dL (9-20); Calcium 7.6 mg/dL (8.4-10.2); Carbon Dioxide 30 mmol/L (22-30); Chloride 102 mmol/L (98-107); Estimated CRCL calculation 40 ml/min; Estimated Glomerular Filt Rate > 60; Glucose 100 mg/dL (65-110); Potassium 3.7 mmol/L (3.4-5.0); Sodium 136 mmol/L (137-145)
--- NOTE | 2024-05-24 09:07 | P.CONOP_ITS ---
Assessment and Plan Assessment and plan (1) Left acetabular fracture: Qualifiers: Encounter type: initial encounter Sublocation of acetabulum: u nspecified portion of acetabulum Fracture type: closed Fracture alignment: d isplaced Qualified Code(s): S32.402A - Unspecified fracture of left acetabulum, initial encounter for closed fracture Code(s): S32.402A - Unspecified fracture of left acetabulum, initial encounter for closed fracture Status: Acute Assessment and Plan: An 83-year-old gentleman who came in through the emergency room night before last with hypoxia sats on room air 70% sats on 15 L non-rebreather of 88% thought to be due to that survey ivory of chronic severe oxygen-dependent COPD pneumonia just of heart failure. He was complaining of pain all over. Yesterday he was reporting urge to defecate and CT abdomen and pelvis was obtained which demonstrate: There is internal fixation of proximal right femur. There is an old healed fracture of right inferior pubic ramus. There are fractures of left superior and inferior pubic rami, likely subacute. There is a comminuted fracture of left acetabulum with early callus formation. There is severe lumbar spondylosis. There is a burst fracture of L2. There is a chronic burst fracture of L1. There is a left 10th rib fracture. There is a healing left eighth rib fracture. The fracture pattern of the acetabulum I believe would be characterized as a both column fracture which is an extremely severe variant. Both the anterior and posterior columns are from the ilium at the level of the dome of the acetabulum and there is fracture of medial wall as well and comminution. There is displacement. Radiologist felt there was subtle evidence for callus formation. I have reviewed the images and callus formation looks very subtle. Pt had CT chest without which showed: FINDINGS: There is extensive consolidation of the left upper, lower and right lower lobes, consistent with pneumonia. There are multiple pulmonary nodules in the right upper lobe, largest measuring 2.2 cm. There is mediastinal shift to the left. There is emphysema. There is a fissural nodule on the right measuring 1.4 x 0.8 cm. There is right hydronephrosis containing high density material which may represent previously administered contrast. There are coarse calcifications in the left upper lobe, likely pancreatic. There are calcified granulomas of the spleen. There is a hiatal hernia. Status post median sternotomy for CABG. There is a partially visualized endovascular stent in the aorta. There are multiple thoracic wedge compression fractures, most likely chronic. I was consulted for his acetabular fracture and pubic ramus fracture. The ER note states that 1 day prior to his admission he was admitted to a local [facility]. Patient did have a fall and he knows that he has a severe fracture of his hip. He cannot recall which 1. He cannot recall where he has been having pain at this time. He states he would need to stand to make that determination. He cannot recall when he fell and became very frustrated when I asked him to try to guess whether it be a few days or a month or longer. He advised me that he would I would have to look at the records. He believes he was admitted to 1 of the hospitals in [place] he thinks it might be [place]. He did not think it was [facility]. He is incontinent of urine and I talked about using 1 of the male urinary pads hooked up to wall suction that would help keep him drier and grinder tender so he can urinate without difficulty. He would like to try that. Physical Exam He is in the lateral decubitus position curled up in a position left side down. He is getting a an echocardiogram at this time. He is very thin he had numerous sores and bruises around his body. The nurse tells me there is an early pressure sore over the lateral aspect of the left heel. I have spoken to the nurse and after the echocardiogram is completed she is going to with the help of 1 of her colleagues to a complete survey for any pressure sores. Patient had no tenderness to palpation of his lower back or light percussion. Patients oxygenation is much better 97% on 10 L high-flow nasal cannula Assessment and plan Patient has a severe comminuted unstable type acetabular fracture with displacement. Based on the fact that he was transferred from a [facility] to a [facility] 3 days ago, it would seem logical to conclude that patient was not deemed to be a surgical candidate for acetabular fracture repair which is very large surgical procedure only done at the tertiary care hospitals as it is a complex and somewhat higher risk procedure. I have spoke with the nurse was going to call [facility] and request any records available pertaining to left acetabular fracture. We will obtain plain radiographs for characterization of the acetabular fracture and for comparison with future x-rays. He also has chronic appearing L1 superior endplate compression fracture more acute or subacute compression fracture at L2 which radiologist is describing as a burst fracture although the sagittal reconstructions of the CT abdomen do not show canal compromise. I do not know that specific bracing treatment for the L2 compression, slight burst fracture will be necessary if he is at bed rest anyway. Patient was taking Eliquis 2.5 mg b.i.d. which is optimal DVT prophylaxis for his acetabular fractures. He also takes a baby aspirin daily. His hemoglobin was 8.3 today and 11.1 yesterday. Another CBC should be ordered in 12 hours as this is a significant drop. I have ordered this. His creatinine is minimally changed today compared with yesterday and his BUN is little bit higher 21 yesterday 19. It is not clear that his drop in hemoglobin can be attributed to hemodilution. Eliquis was put on hold at 5:00 p.m. 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 Localized swelling, mass and lump, unspecified Other constipation Gastro-esophageal reflux disease without esophagitis Other secondary hypertension Chronic pain syndrome Vitamin D deficiency, unspecified Hypoxia O2 dependent COPD (chronic obstructive pulmonary disease) Hip fracture, left Social History Social History Social History: Never Code Status: No CPR per usp documentation; patient also states no intubation in conversation 05/23/24 Smoking packs per day: 0.5 Smoking cigarettes per day: 10.0 Smoking status: Current every day smoker Tobacco type: cigarettes Alcohol intake: former Substance use: never Do You Feel Safe in your Home?: Yes Lack of Transportation: No Lack of Food: Never True Current Housing: I Have Housing Concerned About Future Housing: No Difficulty Paying Gas/Electric Bills: No Difficulty Paying for Meds: No Currently Unemployed: No Education: High School Diploma/GED Difficulty w/ Childcare or Family Care: No Living arrangements: [facility]p Additional living arrangements comments: [facility] [place] since 05/22/24 Occupation/Education: retired Spiritual care concerns: No Meds Home Medications and Allergies Home Medications ?Medication ?Instructions ?Recorded ?Confirmed ?Type amoxicillin 875 mg-potassium 1 tablet PO BID 05/23/24 05/23/24 History clavulanate 125 mg tablet apixaban 2.5 mg tablet (Eliquis) 2.5 mg PO BID 05/23/24 05/23/24 History aspirin 81 mg tablet,delayed 81 mg PO DAILY 05/23/24 05/23/24 History release (Adult Aspirin Regimen) bisacodyl 10 mg rectal suppository 10 mg RECTAL DAILY PRN constipation 05/23/24 05/23/24 History (Dulcolax (bisacodyl)) cholecalciferol (vitamin D3) 25 25 mcg PO DAILY 05/23/24 05/23/24 History mcg (1,000 unit) capsule (Vitamin D3) cyclobenzaprine 5 mg tablet 5 mg PO TID 05/23/24 05/23/24 History lidocaine 5 % topical patch 2 patch transdermal Q12H 05/23/24 05/23/24 History lisinopril 20 mg tablet 20 mg PO DAILY 05/23/24 05/23/24 History metoprolol tartrate 25 mg tablet 25 mg PO DAILY 05/23/24 05/23/24 History oxycodone 5 mg tablet 5 mg PO Q4H PRN pain 05/23/24 05/23/24 History pantoprazole 40 mg granules 40 mg PO BID 05/23/24 05/23/24 History delayed-release for susp in packet (Protonix) polyethylene glycol 3350 17 gram 17 g PO BID 05/23/24 05/23/24 History oral powder packet (Miralax) rosuvastatin 20 mg tablet 10 mg PO DAILY 05/23/24 05/23/24 History senna-docusate sodium tablet 1 tablet PO BID 05/23/24 05/23/24 History Allergies Allergy/AdvReac Type Severity Reaction Status Date / Time adhesive tape Allergy Unknown Verified 05/23/24 03:32 baclofen Allergy Unknown Verified 05/23/24 03:32 celecoxib Allergy Unknown Verified 05/23/24 03:32 clopidogrel (From Plavix) Allergy Unknown Verified 05/23/24 03:32 Iodinated Contrast Media Allergy Unknown Verified 05/23/24 03:32 isosorbide Allergy Unknown Verified 05/23/24 03:32 ketorolac Allergy Unknown Verified 05/23/24 03:32 rofecoxib Allergy Unknown Verified 05/23/24 03:32 tramadol Allergy Unknown Verified 05/23/24 03:32 Vital Signs Vital Signs - 24 hr 05/23/24 09:10 05/23/24 09:16 05/23/24 09:25 Temperature Pulse Rate 76 81 82 Respiratory Rate 20 19 22 H Blood Pressure 138/62 Pulse Oximetry 77 L Oxygen Delivery Oxygen Flow Rate 05/23/24 09:26 05/23/24 09:27 05/23/24 09:30 Temperature Pulse Rate 72 Respiratory Rate 20 Blood Pressure 134/61 Pulse Oximetry 96 96 77 L Oxygen Delivery Non-Rebreather Mask Non-Rebreather Mask Oxygen Flow Rate 15 15 05/23/24 09:34 05/23/24 10:30 05/23/24 10:31 Temperature Pulse Rate 85 81 Respiratory Rate 20 20 Blood Pressure 106/60 Pulse Oximetry 79 L 79 L Oxygen Delivery Oxygen Flow Rate 05/23/24 11:59 05/23/24 12:00 05/23/24 12:00 Temperature 36.8 C Pulse Rate 81 88 77 Respiratory Rate 20 18 Blood Pressure 117/63 Pulse Oximetry 97 97 Oxygen Delivery Non-Rebreather Mask Oxygen Flow Rate 15 05/23/24 13:36 05/23/24 13:39 05/23/24 13:44 Temperature Pulse Rate 91 88 Respiratory Rate 18 18 Blood Pressure Pulse Oximetry 90 Oxygen Delivery Nasal Cannula Oxygen Flow Rate 6 05/23/24 14:00 05/23/24 15:59 05/23/24 16:00 Temperature 36.5 C Pulse Rate 83 80 77 Respiratory Rate 24 H Blood Pressure 126/50 L Pulse Oximetry 94 Oxygen Delivery Oxygen Flow Rate 05/23/24 16:00 05/23/24 18:00 05/23/24 19:14 Temperature Pulse Rate 81 77 Respiratory Rate 18 Blood Pressure Pulse Oximetry 97 91 Oxygen Delivery Nasal Cannula Nasal Cannula Oxygen Flow Rate 6 6 05/23/24 19:14 05/23/24 19:19 05/23/24 19:37 Temperature 36.6 C Pulse Rate 82 77 77 Respiratory Rate 22 H 22 H 18 Blood Pressure 138/72 Pulse Oximetry 93 Oxygen Delivery Oxygen Flow Rate 05/23/24 20:00 05/23/24 20:00 05/23/24 22:00 Temperature Pulse Rate 85 64 Respiratory Rate Blood Pressure Pulse Oximetry 96 Oxygen Delivery Nasal Cannula Oxygen Flow Rate 6 05/23/24 23:57 05/24/24 00:00 05/24/24 00:00 Temperature 36.8 C Pulse Rate 60 62 Respiratory Rate 19 Blood Pressure 127/50 L Pulse Oximetry 90 95 Oxygen Delivery Nasal Cannula Oxygen Flow Rate 6 05/24/24 01:51 05/24/24 01:56 05/24/24 02:00 Temperature Pulse Rate 63 60 58 L Respiratory Rate 16 16 Blood Pressure Pulse Oximetry Oxygen Delivery Oxygen Flow Rate 05/24/24 04:00 05/24/24 04:00 05/24/24 04:00 Temperature 36.4 C Pulse Rate 64 59 L Respiratory Rate 18 Blood Pressure 121/50 L Pulse Oximetry 92 94 Oxygen Delivery High Flow Nasal Cannula Oxygen Flow Rate 7 05/24/24 06:00 05/24/24 06:50 05/24/24 06:50 Temperature Pulse Rate 71 65 65 Respiratory Rate 18 18 Blood Pressure Pulse Oximetry 94 Oxygen Delivery High Flow Nasal Cannula Oxygen Flow Rate 9 05/24/24 07:00 05/24/24 07:48 05/24/24 08:03 Temperature 36.6 C Pulse Rate 66 76 71 Respiratory Rate 18 18 Blood Pressure 125/53 L Pulse Oximetry 90 Oxygen Delivery Oxygen Flow Rate Results Labs 05/24/24 08:29 05/24/24 08:29 Labs: Abnormal lab results 05/23/24 05/24/24 Range/Units 03:14 08:29 RBC 2.75 L (4.6-6.20) M/mm3 Hgb 8.3 L (14.0-18.0) g/dL Hct 26.0 L (42.0-52.0) % MCHC 31.9 L (32-36) g/dl RDW 16.6 H (11.5-14.5) % Sodium 136 L (137-145) mmol/L BUN 21 H (9-20) mg/dL Calcium 7.6 L (8.4-10.2) mg/dL Total Protein 6.0 L (6.3-8.2) g/dL Albumin 2.2 L (3.5-5.1) g/dL TSH (Reflex) 25.300 H (0.465-4.68) uIU/mL Total T3 0.75 L (0.97-1.69) NG/ML H & H 05/23/24 05/24/24 Range/Units 03:14 08:29 Hgb 11.2 L 8.3 L (14.0-18.0) g/dL Hct 34.8 L 26.0 L (42.0-52.0) % All other labs normal.
[2024-05-24 09:13] LABS: NT Pro B Type Natriuretic Pept 4610 pg/mL (19.9-100)
--- NOTE | 2024-05-24 09:45 | PC.NURSE ---
eccho is still in with pt
[2024-05-24] MEDS: ROSUVASTATIN 10 MG TABLET PO (10:05)
[2024-05-24] MEDS: polyethylene glycoL 3350 17 GM POWD.PACK PO (10:05)
[2024-05-24] MEDS: AZITHROMYCIN 500 MG/NS 250 ML 500 MG/250 ML BAG 250 MG IVPB (10:18)
[2024-05-24 10:35] LABS: Free T4 Free Thyroxine Reflex 1.02 ng/dL (0.78-2.19)
--- NOTE | 2024-05-24 10:35 | PC.NURSE ---
pt refuses hip/pelvis xray, dr little notified and xray, pt is still being argumentative with staff, encouraged relaxation techniques
--- NOTE | 2024-05-24 11:07 | PC.NURSE ---
speech attempting swallow study at this time
--- NOTE | 2024-05-24 12:39 | PC.NURSE ---
pt is angry that he is not being allowed to eat, reminded that he is on npo status still at this time and we can not give him anything to eat until the hospitalist reviews the swallow study, pt is being verbally abusive to staff, tells nurse you need your ass spanked and maybe then you'll listen better , pt told his language is inappropriate, pt wants to speak with hospitalist, will continue to monitor
--- NOTE | 2024-05-24 12:47 | PCSTNOTE ---
Please refer to the Bedside Swallow Evaluation in the EMR. Please note, silent aspiration cannot be ruled out at bedside. This 83 year old patient was very irritable upon ST entry. The pt was admitted d/t shortness of breath/dyspnea on 05/23/24. Last night around 1730 the pts RN reported an episode of vomiting after the pt ate his dinner. Today, the pts RN, Miranda, reported that the pt threw up 5 minutes after taking his pills this morning. The pt trialed thin, pureed, mixed, and solid consistencies this date. He verbalized that he wanted to be laying down d/t positional discomfort, but ST verbalized that sitting up would be the safest during oral intake. Following repositioning, the pt did multiple trials of each consistency and demonstrated no s/s of aspiration. About 5-10 minutes following the bedside swallow evaluation, the pt expectorated the consistencies that we trialed. He verbalized that he has no trouble swallowing, but continues to get sick. Due to the results of this bedside swallow evaluation, it is recommended that further testing be done to determine the cause of the expectorating. During meals, it is recommended that this pt have 1:1 supervision d/t impulsivity. The pt should follow standard swallowing precautions and be sitting upright during meals, take small bites/sips, alternate solids/liquids, and limits distractions. At this time, the pts swallow function is within functional limits. Dr. GUERRA and the pts RN, Miranda have been notified of test results/recommendations.
--- NOTE | 2024-05-24 12:58 | PC.NURSE ---
Pj has been in to speak with pt, pt wishes to do comfort care so he can eat, pj went over aspiration precautions and what comfort care entails, care coordination is aware
--- NOTE | 2024-05-24 13:27 | PM.IMPN ---
Progress Note: A&P Assessment and Plan (1) Hydronephrosis: Qualifiers: Hydronephrosis type: unspecified Qualified Code(s): N13.30 - Unspecified hydronephrosis Code(s): N13.30 - Unspecified hydronephrosis Status: Acute (2) COPD (chronic obstructive pulmonary disease): Code(s): J44.9 - Chronic obstructive pulmonary disease, unspecified Status: Acute (3) Heart failure: Code(s): I50.9 - Heart failure, unspecified Status: Acute (4) Bilateral pleural effusion: Code(s): J90 - Pleural effusion, not elsewhere classified Status: Acute Plan Comfort care COPD -Number of exacerbation -Smoking Hx -Vaccination Hx -custodial O2 -Comorbid conditions including CHF -COPD Exacerbation requiring BiPAP -Pulmonology workup done as OP -Home O2 -ECHO ordered -D/C Vancomycin since Nasal MRSA not detected -Started on Ceftriaxone and Azithromycin CHF -BNP 5250 -cardiology consulted -IV Lasix b.i.d. -monitor renal function during diuresis -echocardiogram pending -EKG AFIB -Chest CT: Pulmonary edema -Lipid panel, TSH, liver function test. -Optimize René inhibitors, beta-blockers, ARNI -Daily weights. -fluid restriction -Strict I&O's -Optimize blood pressure less than 130/80. -Fall risk assessment. -continue lisinopril A.Fib -Eliquis 2.5 p.o. b.i.d. -continue metoprolol tartrate 25 p.o. b.i.d. -ordered a TSH Pulmonary Nodule -ordered CT abdomen pelvis -ordered PSA -consulted Hem-Onc Right hydronephrosis -Will consider Urology -ordered abdomen pelvis and CT -Ordered ultrasound kidneys Subjective Date/time seen: 05/24/24 13:27 Interval history: Discussed with the patient and he wants to do comfort care. Patient will be downgraded from IMU and discharge planning as per care coordination recommendation.Patient has multiple comorbid condition including hydronephrosis and hydroureter, moderate size left pleural effusion and small right pleural effusion, severe acute committed fracture of left acetabulum and left superior and inferior pubic rami, is acute versus subacute left 10th rib fracture, L2 burst fracture likely acute or subacute. Patient also evaluated by speech therapy even though there is no evidence of aspiration patient had episode of emesis after 5 minutes eating the food. Patient needs to be evaluated for for dysphagia. I spoke to him with nurse Miranda to conform his goal of care. Patient is adamant he wants comfort care and no aggressive measures. Objective Data Vital Signs Vital Signs: Vital Signs - 24 hr 05/23/24 13:36 05/23/24 13:39 05/23/24 13:44 Temperature Pulse Rate 91 88 Respiratory Rate 18 18 Blood Pressure Pulse Oximetry 90 Oxygen Delivery Nasal Cannula Oxygen Flow Rate 6 05/23/24 14:00 05/23/24 15:59 05/23/24 16:00 Temperature 97.7 F Pulse Rate 83 80 77 Respiratory Rate 24 H Blood Pressure 126/50 L Pulse Oximetry 94 Oxygen Delivery Oxygen Flow Rate 05/23/24 16:00 05/23/24 18:00 05/23/24 19:14 Temperature Pulse Rate 81 77 Respiratory Rate 18 Blood Pressure Pulse Oximetry 97 91 Oxygen Delivery Nasal Cannula Nasal Cannula Oxygen Flow Rate 6 6 05/23/24 19:14 05/23/24 19:19 05/23/24 19:37 Temperature 97.8 F Pulse Rate 82 77 77 Respiratory Rate 22 H 22 H 18 Blood Pressure 138/72 Pulse Oximetry 93 Oxygen Delivery Oxygen Flow Rate 05/23/24 20:00 05/23/24 20:00 05/23/24 22:00 Temperature Pulse Rate 85 64 Respiratory Rate Blood Pressure Pulse Oximetry 96 Oxygen Delivery Nasal Cannula Oxygen Flow Rate 6 05/23/24 23:57 05/24/24 00:00 05/24/24 00:00 Temperature 98.2 F Pulse Rate 60 62 Respiratory Rate 19 Blood Pressure 127/50 L Pulse Oximetry 90 95 Oxygen Delivery Nasal Cannula Oxygen Flow Rate 6 05/24/24 01:51 05/24/24 01:56 05/24/24 02:00 Temperature Pulse Rate 63 60 58 L Respiratory Rate 16 16 Blood Pressure Pulse Oximetry Oxygen Delivery Oxygen Flow Rate 05/24/24 04:00 05/24/24 04:00 05/24/24 04:00 Temperature 97.6 F Pulse Rate 64 59 L Respiratory Rate 18 Blood Pressure 121/50 L Pulse Oximetry 92 94 Oxygen Delivery High Flow Nasal Cannula Oxygen Flow Rate 7 05/24/24 06:00 05/24/24 06:50 05/24/24 06:50 Temperature Pulse Rate 71 65 65 Respiratory Rate 18 18 Blood Pressure Pulse Oximetry 94 Oxygen Delivery High Flow Nasal Cannula Oxygen Flow Rate 9 05/24/24 07:00 05/24/24 07:48 05/24/24 08:00 Temperature 97.8 F Pulse Rate 66 76 Respiratory Rate 18 18 Blood Pressure 125/53 L Pulse Oximetry 90 97 Oxygen Delivery High Flow Nasal Cannula Oxygen Flow Rate 10 05/24/24 08:00 05/24/24 08:03 05/24/24 10:00 Temperature Pulse Rate 68 71 69 Respiratory Rate Blood Pressure Pulse Oximetry Oxygen Delivery Oxygen Flow Rate 05/24/24 12:00 05/24/24 12:00 05/24/24 12:29 Temperature 97.7 F Pulse Rate 77 71 Respiratory Rate 18 Blood Pressure 133/68 Pulse Oximetry 98 93 Oxygen Delivery High Flow Nasal Cannula Oxygen Flow Rate 10 Intake/Output Intake/Output: Intake & Output 05/21/24 05/22/24 05/23/24 05/24/24 23:59 23:59 23:59 23:59 Intake Total 615 1350 Output Total 1 100 Balance 614 1250 Meds/Results Medications: Active Medications Generic Name Dose Route Start Last Admin Trade Name Freq PRN Reason Stop Dose Admin Acetaminophen 650 mg 05/23/24 09:17 Acetaminophen 325 Mg Tablet PO Q4H PRN Mild Pain (1-3) or Fever Albuterol 2.5 mg 05/23/24 14:00 05/24/24 06:55 Albuterol Sulfate Neb 2.5 Mg/3 Ml Inh INHALATION 2.5 mg Q6HRT MERRICK Administration Apixaban 2.5 mg 05/23/24 17:00 05/24/24 08:02 Apixaban 2.5 Mg Tablet PO 2.5 mg BID MERRICK Administration Aspirin 81 mg 05/24/24 09:00 05/24/24 08:02 Aspirin 81 Mg Enteric Tablet PO 81 mg DAILY MERRICK Administration Atropine Sulfate 1 - 2 drop 05/23/24 06:56 Atropine Sulfate 1% Ophth Soln 5 Ml Bottle SUBLINGUAL Q4H PRN Secretions Azithromycin 500 mg 05/25/24 09:00 Azithromycin 250 Mg Tablet PO 05/27/24 09:01 DAILY MERRICK Bisacodyl 10 mg 05/23/24 15:46 Bisacodyl 10 Mg Suppository RECTAL DAILY PRN constipation Cyclobenzaprine HCl 5 mg 05/23/24 17:00 05/24/24 13:26 Cyclobenzaprine Hcl 5 Mg Tablet PO Not Given TID MERRICK Furosemide 40 mg 05/23/24 17:00 05/24/24 08:04 Furosemide Inj 40 Mg/4 Ml Vial IV PUSH 40 mg BID MERRICK Administration Ceftriaxone Sodium 2 gm in 100 mls @ 200 mls/hr 05/24/24 09:00 05/24/24 08:44 Rocephin 2 Gm/Ns 100 Ml IVPB Infused Q24H MERRICK Infusion Dextrose/Sodium Chloride 1,000 mls @ 100 mls/hr 05/23/24 17:50 05/24/24 06:08 Dextrose 5% Sodium Chloride 0.45% IV CONT 100 mls/hr .Q10H MERRICK Administration Levothyroxine Sodium 25 mcg 05/24/24 08:15 05/24/24 10:01 Levothyroxine Sodium 25 Mcg Tablet PO Not Given DAILY@0630 MERRICK Lidocaine 2 patch 05/24/24 09:00 05/24/24 08:04 Lidocaine 5% Patch TRANSDERM Not Given DAILY [facility] Lisinopril 20 mg 05/24/24 09:00 05/24/24 08:02 Lisinopril 20 Mg Tablet PO 20 mg DAILY MERRICK Administration Metoprolol Tartrate 25 mg 05/24/24 09:00 05/24/24 08:03 Metoprolol Tartrate 25 Mg Tablet PO 25 mg DAILY MERRICK Administration Miscellaneous Information 0 each 05/23/24 00:01 Lidocaine Patch - Please Add Application Site To Order Comments XX 06/22/24 00:00 CLARIFY MERRICK Ondansetron HCl 4 mg 05/23/24 09:17 05/23/24 17:30 Ondansetron Inj 4 Mg/2 Ml Vial IV PUSH 4 mg Q4H PRN Administration Nausea Oxycodone HCl 5 mg 05/23/24 15:46 Oxycodone Hcl (*Crx) 5 Mg Tab Ir PO Q4H PRN Pain Rated 4-6 Pantoprazole Sodium 40 mg 05/23/24 17:00 05/24/24 08:02 Pantoprazole 40 Mg Tablet PO 40 mg BID MERRICK Administration Perflutren Lipid Microsphere 0 ml 05/23/24 16:10 Perflutren Lipid Microspheres 1.5 Ml Vial Diluted To 10 Ml Total Volume IV PUSH 05/26/24 16:11 ONCE PRN adequate visualization Protocol Polyethylene Glycol 17 gm 05/23/24 17:00 05/24/24 10:05 Polyethylene Glycol 3350 17 Gm Powd.Pack PO 17 gm BID MERRICK Administration Rosuvastatin Calcium 10 mg 05/24/24 09:00 05/24/24 10:05 Rosuvastatin 10 Mg Tablet PO 10 mg DAILY MERRICK Administration Senna/Docusate Sodium 1 tab 05/23/24 17:00 05/24/24 08:02 Senna/Docusate Sodium Tablet PO 1 tab BID MERRICK Administration Radiology Results: ITS Impressions Chest X-Ray 05/23/24 05:30 Impression: 1: Masslike density overlying the right hilum, suspicious for malignancy. 2: Extensive bilateral airspace consolidation which may represent pneumonia or edema. 3: Small left pleural effusion. 4: Possible left clavicular fracture, although incompletely visualized. Chest CT 05/23/24 08:55 IMPRESSION: 1. Right upper lobe nodules measuring up to 2.2 cm, suspicious for metastatic disease. 2: Multifocal consolidation, consistent with pneumonia. 3: Bilateral pleural effusions, left greater than right. 4: Right hydronephrosis. Renal Ultrasound 05/23/24 19:50 IMPRESSION: 1. Severe right hydronephrosis. Increased right renal parenchymal echogenicity, consistent with nephropathy. 2. Small volume of ascites. Abdomen/Pelvis CT 05/23/24 21:44 IMPRESSION: 1. Diffuse lung disease, consistent with multifocal pneumonia, left worse than right. 2. Small right and moderate-sized left pleural effusions. 3. Severe right hydronephrosis and hydroureter. Hyperdense urine may be secondary to prior contrast administration or hematuria. 4. Small volume of ascites. 5. Subacute comminuted fractures of left acetabulum and left superior and inferior pubic rami. 6. Acute versus subacute left 10th rib fracture. 7. L2 burst fracture, likely acute or subacute. 8. Large volume of stool in the colon with distention of the rectum. Labs Labs: Laboratory Results - last 24 hr 05/23/24 05/24/24 05/24/24 03:14 08:28 08:29 WBC 4.5 RBC 2.75 L Hgb 8.3 L Hct 26.0 L MCV 94.5 MCH 30.2 MCHC 31.9 L RDW 16.6 H Plt Count 152 MPV 9.2 Sodium 136 L Potassium 3.7 Chloride 102 Carbon Dioxide 30 Anion Gap 4 BUN 21 H Creatinine 1.13 Estim Creat Clear Calc 40 Estimated GFR > 60 Glucose 100 Hemoglobin A1c 5.7 Calcium 7.6 L Total Bilirubin 0.5 AST 25 ALT 12 Alkaline Phosphatase 123 NT-Pro-B Natriuret Pep 4610 H Total Protein 6.0 L Albumin 2.2 L Triglycerides 137 Cholesterol 119 LDL Cholesterol Direct 55 HDL Direct 42 Prostate Specific Ag 2.0 TSH (Reflex) 25.300 H 16.200 H Free T4 1.20 1.02 Total T3 0.75 L 0.60 L Hospitalist MIPS Advance Care Plan I have confirmed that the patient's Advanced Care Plan is present, code status is documented, or surrogate decision maker is listed in patient medical record.: Yes Medication Reconciliation I have utilized all available resources to obtain, update and review the patients current medications (includes all prescriptions, OTC, herbals, cannabis, and nutritional supplements).: Yes
--- NOTE | 2024-05-24 14:01 | P.CONUR_ITS ---
Assessment and Plan Assessment and plan (1) Hydronephrosis, right: Code(s): N13.30 - Unspecified hydronephrosis Status: Acute Plan Patient is asymptomatic and does not want to pursue any further evaluation and treatment. His creatinine is 1.13. After I had evaluated in seen him was notified that he now has become comfort measures only. Urology Consult Note HPI Date Seen: 05/24/24 Time Seen: 13:30 Requesting Physician: Zach Mcneal MD Primary Care Provider: Chivo Pierre, Consult Narrative Reason for consult: Right hydronephrosis Narrative: Pradip Hernandez is a 83 year old male with multiple medical issues was found to have a possible acetabular fracture. During his evaluation he was noted to have severe right hydronephrosis. Patient denies any pain. He somewhat of a poor historian. He did not want to pursue any further evaluation of this hydronephrosis given he is not having symptoms. 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 half-way (current) use of anticoagulants Localized swelling, mass and lump, unspecified Other constipation Gastro-esophageal reflux disease without esophagitis Other secondary hypertension Chronic pain syndrome Vitamin D deficiency, unspecified Hypoxia O2 dependent COPD (chronic obstructive pulmonary disease) Hip fracture, left Social History Social History Social History: Never Code Status: No CPR per long term documentation; patient also states no intubation in conversation 05/23/24 Smoking packs per day: 0.5 Smoking cigarettes per day: 10.0 Smoking status: Current every day smoker Tobacco type: cigarettes Alcohol intake: former Substance use: never Do You Feel Safe in your Home?: Yes Lack of Transportation: No Lack of Food: Never True Current Housing: I Have Housing Concerned About Future Housing: No Difficulty Paying Gas/Electric Bills: No Difficulty Paying for Meds: No Currently Unemployed: No Education: High School Diploma/GED Difficulty w/ Childcare or Family Care: No Living arrangements: long term Additional living arrangements comments: [facility] at [place] since 05/22/24 Occupation/Education: retired Spiritual care concerns: No Meds Home Medications and Allergies Home Medications ?Medication ?Instructions ?Recorded ?Confirmed ?Type amoxicillin 875 mg-potassium 1 tablet PO BID 05/23/24 05/23/24 History clavulanate 125 mg tablet apixaban 2.5 mg tablet (Eliquis) 2.5 mg PO BID 05/23/24 05/23/24 History aspirin 81 mg tablet,delayed 81 mg PO DAILY 05/23/24 05/23/24 History release (Adult Aspirin Regimen) bisacodyl 10 mg rectal suppository 10 mg RECTAL DAILY PRN constipation 05/23/24 05/23/24 History (Dulcolax (bisacodyl)) cholecalciferol (vitamin D3) 25 25 mcg PO DAILY 05/23/24 05/23/24 History mcg (1,000 unit) capsule (Vitamin D3) cyclobenzaprine 5 mg tablet 5 mg PO TID 05/23/24 05/23/24 History lidocaine 5 % topical patch 2 patch transdermal Q12H 05/23/24 05/23/24 History lisinopril 20 mg tablet 20 mg PO DAILY 05/23/24 05/23/24 History metoprolol tartrate 25 mg tablet 25 mg PO DAILY 05/23/24 05/23/24 History oxycodone 5 mg tablet 5 mg PO Q4H PRN pain 05/23/24 05/23/24 History pantoprazole 40 mg granules 40 mg PO BID 05/23/24 05/23/24 History delayed-release for susp in packet (Protonix) polyethylene glycol 3350 17 gram 17 g PO BID 05/23/24 05/23/24 History oral powder packet (Miralax) rosuvastatin 20 mg tablet 10 mg PO DAILY 05/23/24 05/23/24 History senna-docusate sodium tablet 1 tablet PO BID 05/23/24 05/23/24 History Allergies Allergy/AdvReac Type Severity Reaction Status Date / Time adhesive tape Allergy Unknown Verified 05/23/24 03:32 baclofen Allergy Unknown Verified 05/23/24 03:32 celecoxib Allergy Unknown Verified 05/23/24 03:32 clopidogrel (From Plavix) Allergy Unknown Verified 05/23/24 03:32 Iodinated Contrast Media Allergy Unknown Verified 05/23/24 03:32 isosorbide Allergy Unknown Verified 05/23/24 03:32 ketorolac Allergy Unknown Verified 05/23/24 03:32 rofecoxib Allergy Unknown Verified 05/23/24 03:32 tramadol Allergy Unknown Verified 05/23/24 03:32 Vital Signs Vital Signs - 24 hr 05/23/24 15:59 05/23/24 16:00 05/23/24 16:00 Temperature 36.5 C Pulse Rate 80 77 81 Respiratory Rate 24 H 18 Blood Pressure 126/50 L Pulse Oximetry 94 97 Oxygen Delivery Nasal Cannula Oxygen Flow Rate 6 05/23/24 18:00 05/23/24 19:14 05/23/24 19:14 Temperature Pulse Rate 77 82 Respiratory Rate 22 H Blood Pressure Pulse Oximetry 91 Oxygen Delivery Nasal Cannula Oxygen Flow Rate 6 05/23/24 19:19 05/23/24 19:37 05/23/24 20:00 Temperature 36.6 C Pulse Rate 77 77 Respiratory Rate 22 H 18 Blood Pressure 138/72 Pulse Oximetry 93 96 Oxygen Delivery Nasal Cannula Oxygen Flow Rate 6 05/23/24 20:00 05/23/24 22:00 05/23/24 23:57 Temperature 36.8 C Pulse Rate 85 64 60 Respiratory Rate 19 Blood Pressure 127/50 L Pulse Oximetry 90 Oxygen Delivery Oxygen Flow Rate 05/24/24 00:00 05/24/24 00:00 05/24/24 01:51 Temperature Pulse Rate 62 63 Respiratory Rate 16 Blood Pressure Pulse Oximetry 95 Oxygen Delivery Nasal Cannula Oxygen Flow Rate 6 05/24/24 01:56 05/24/24 02:00 05/24/24 04:00 Temperature 36.4 C Pulse Rate 60 58 L 64 Respiratory Rate 16 18 Blood Pressure 121/50 L Pulse Oximetry 92 Oxygen Delivery Oxygen Flow Rate 05/24/24 04:00 05/24/24 04:00 05/24/24 06:00 Temperature Pulse Rate 59 L 71 Respiratory Rate Blood Pressure Pulse Oximetry 94 Oxygen Delivery High Flow Nasal Cannula Oxygen Flow Rate 7 05/24/24 06:50 05/24/24 06:50 05/24/24 07:00 Temperature Pulse Rate 65 65 66 Respiratory Rate 18 18 18 Blood Pressure Pulse Oximetry 94 Oxygen Delivery High Flow Nasal Cannula Oxygen Flow Rate 9 05/24/24 07:48 05/24/24 08:00 05/24/24 08:00 Temperature 36.6 C Pulse Rate 76 68 Respiratory Rate 18 Blood Pressure 125/53 L Pulse Oximetry 90 97 Oxygen Delivery High Flow Nasal Cannula Oxygen Flow Rate 10 05/24/24 08:03 05/24/24 10:00 05/24/24 12:00 Temperature Pulse Rate 71 69 Respiratory Rate Blood Pressure Pulse Oximetry 98 Oxygen Delivery High Flow Nasal Cannula Oxygen Flow Rate 10 05/24/24 12:00 05/24/24 12:29 Temperature 36.5 C Pulse Rate 77 71 Respiratory Rate 18 Blood Pressure 133/68 Pulse Oximetry 93 Oxygen Delivery Oxygen Flow Rate Exam 2 Const: General: comfortable, poor hygiene and underweight Results Labs 05/24/24 08:29 05/24/24 08:29 Labs: Short CBC 05/24/24 Range/Units 08:29 WBC 4.5 (4.5-10.0) K/mm3 Hgb 8.3 L (14.0-18.0) g/dL Hct 26.0 L (42.0-52.0) % Plt Count 152 (150-375) k/mm3 BMP 05/24/24 08:29 Sodium 136 L Potassium 3.7 Chloride 102 Carbon Dioxide 30 BUN 21 H Creatinine 1.13 Glucose 100 Calcium 7.6 L Liver Function 05/24/24 Range/Units 08:29 Total Bilirubin 0.5 (0.2-1.3) mg/dL AST 25 (17-59) U/L ALT 12 (6-50) U/L Alkaline Phosphatase 123 (38-126) U/L Albumin 2.2 L (3.5-5.1) g/dL
--- NOTE | 2024-05-24 15:38 | PC.NURSE ---
called to give report, nurse will call back
--- NOTE | 2024-05-24 16:31 | PC.NURSE ---
pt transferred in to room 240 via bed, oriented to room and environment, reviewed plan of care
--- NOTE | 2024-05-24 20:38 | PC.NURSE ---
Pt's ADVID Nixon phone number is [phone]. Please use this number to contact her about changes in pt's condition.
[2024-05-25] VITALS (11 sets, daily range): BP systolic 120–155; BP diastolic 52–78; PULSE 65–94; RESP 16–20; TEMP 36.2–36.8; O2SAT 90–96
[2024-05-25] MEDS: ALBUTEROL SULFATE NEB 2.5 MG/3 ML INH INHALATION ×3 (06:55→20:37)
[2024-05-25] MEDS: ACETAMINOPHEN 325 MG TABLET 650 MG PO (06:55)
[2024-05-25] MEDS: DEXTROSE 5%/0.45% SOD CHL 1,000 ML 100 ML IV CONT ×3 (07:50→20:25)
[2024-05-25] MEDS: METOPROLOL TARTRATE 25 MG TABLET PO (08:51)
[2024-05-25] MEDS: ASPIRIN 81 MG ENTERIC TABLET PO (08:51)
[2024-05-25] MEDS: ROSUVASTATIN 10 MG TABLET PO (08:51)
[2024-05-25] MEDS: PANTOPRAZOLE 40 MG TABLET PO (08:52)
[2024-05-25] MEDS: SENNA/DOCUSATE SODIUM TABLET 1 TAB PO ×2 (08:52→18:00)
[2024-05-25] MEDS: CYCLOBENZAPRINE HCL 5 MG TABLET PO ×2 (08:52→12:16)
[2024-05-25] MEDS: lisinopriL 20 MG TABLET PO (08:52)
[2024-05-25] MEDS: AZITHROMYCIN 250 MG TABLET 500 MG PO (08:52)
[2024-05-25] MEDS: cefTRIAXone 2 GM/NS 100 ML 2 GM/100 ML BAG IVPB (08:53)
[2024-05-25] MEDS: FUROSEMIDE INJ 40 MG/4 ML VIAL IV PUSH (09:00)
--- NOTE | 2024-05-25 14:15 | P.PNIM_ITS ---
Progress Note: A&P Assessment and Plan (1) Hydronephrosis: Qualifiers: Hydronephrosis type: unspecified Qualified Code(s): N13.30 - Unspecified hydronephrosis Code(s): N13.30 - Unspecified hydronephrosis Status: Acute (2) COPD (chronic obstructive pulmonary disease): Code(s): J44.9 - Chronic obstructive pulmonary disease, unspecified Status: Acute (3) Heart failure: Code(s): I50.9 - Heart failure, unspecified Status: Acute (4) Bilateral pleural effusion: Code(s): J90 - Pleural effusion, not elsewhere classified Status: Acute Plan Comfort care COPD -Number of exacerbation -Smoking Hx -Vaccination Hx -MCC O2 -Comorbid conditions including CHF -COPD Exacerbation requiring BiPAP -Pulmonology workup done as OP -Home O2 -ECHO ordered -D/C Vancomycin since Nasal MRSA not detected -Started on Ceftriaxone and Azithromycin CHF -BNP 5250 -cardiology consulted -IV Lasix b.i.d. -monitor renal function during diuresis -echocardiogram pending -EKG AFIB -Chest CT: Pulmonary edema -Lipid panel, TSH, liver function test. -Optimize René inhibitors, beta-blockers, ARNI -Daily weights. -fluid restriction -Strict I&O's -Optimize blood pressure less than 130/80. -Fall risk assessment. -continue lisinopril A.Fib -Eliquis 2.5 p.o. b.i.d. -continue metoprolol tartrate 25 p.o. b.i.d. -ordered a TSH Pulmonary Nodule -ordered CT abdomen pelvis -ordered PSA -consulted Hem-Onc Right hydronephrosis -Will consider Urology -ordered abdomen pelvis and CT -Ordered ultrasound kidneys Subjective Date/time seen: 05/25/24 14:15 Interval history: Continue comfort care. Discharge planning as per care coordination Review of Systems Review of Systems: All systems reviewed & are unremarkable except as noted in HPI and below Exam Narrative: GENERAL: Chronically ill-appearing, HEAD: Normocephalic, atraumatic. EYES: Non injected, non icteric ENT: Nares clear, no rhinorrhea or epistaxis. NECK: Supple. CHEST: Speaking in full sentences. Tachypneic. Coarse breath sounds though poor air movement HEART: Regular rate and rhythm. ABDOMEN: Soft, nondistended. EXTREMITIES: Normal range of motion. RUE edema. SKIN: Warm, dry. Multiple scattered wounds/abrasions, many weeping. NEURO: No focal deficits. Alert and oriented x4 for questions asked by RN at bedside. PSYCH: Congruent mood and affect. Cantankerous. Const: General: comfortable, poor hygiene and underweight Nutritional Appearance: underweight Objective Data Vital Signs Vital Signs: Vital Signs - 24 hr 05/24/24 20:00 05/24/24 20:00 05/24/24 20:40 Temperature 98.1 F Pulse Rate 85 72 78 Respiratory Rate 18 18 18 Blood Pressure 101/55 L Pulse Oximetry 95 91 Oxygen Delivery Nasal Cannula Oxygen Flow Rate 9 05/24/24 20:43 05/24/24 20:52 05/25/24 06:50 Temperature Pulse Rate 72 78 Respiratory Rate 18 20 Blood Pressure Pulse Oximetry 91 96 Oxygen Delivery Nasal Cannula High Flow Nasal Cannula Oxygen Flow Rate 7 9 05/25/24 06:50 05/25/24 07:00 05/25/24 07:01 Temperature 97.8 F Pulse Rate 78 77 75 Respiratory Rate 20 20 18 Blood Pressure 155/78 H Pulse Oximetry 95 Oxygen Delivery Oxygen Flow Rate 05/25/24 08:47 05/25/24 08:51 05/25/24 08:52 Temperature 97.2 F L Pulse Rate 94 80 Respiratory Rate 16 Blood Pressure 120/52 L Pulse Oximetry 90 93 Oxygen Delivery High Flow Nasal Cannula Oxygen Flow Rate 9 Intake/Output Intake/Output: Intake & Output 05/22/24 05/23/24 05/24/24 05/25/24 23:59 23:59 23:59 23:59 Intake Total 615 2830 843.3 Output Total 1 100 Balance 614 2730 843.3 Meds/Results Medications: Active Medications Generic Name Dose Route Start Last Admin Trade Name Freq PRN Reason Stop Dose Admin Acetaminophen 650 mg 05/23/24 09:17 05/25/24 06:55 Acetaminophen 325 Mg Tablet PO 650 mg Q4H PRN Administration Mild Pain (1-3) or Fever Albuterol 2.5 mg 05/23/24 14:00 05/25/24 12:45 Albuterol Sulfate Neb 2.5 Mg/3 Ml Inh INHALATION 2.5 mg Q6HRT MERRICK Administration Apixaban 2.5 mg 05/23/24 17:00 05/24/24 08:02 Apixaban 2.5 Mg Tablet PO 2.5 mg BID [facility] Administration Aspirin 81 mg 05/24/24 09:00 05/25/24 08:51 Aspirin 81 Mg Enteric Tablet PO 81 mg DAILY [facility] Administration Atropine Sulfate 1 - 2 drop 05/23/24 06:56 Atropine Sulfate 1% Ophth Soln 5 Ml Bottle SUBLINGUAL Q4H PRN Secretions Azithromycin 500 mg 05/25/24 09:00 05/25/24 08:52 Azithromycin 250 Mg Tablet PO 05/27/24 09:01 500 mg DAILY [facility] Administration Bisacodyl 10 mg 05/23/24 15:46 Bisacodyl 10 Mg Suppository RECTAL DAILY PRN constipation Cyclobenzaprine HCl 5 mg 05/23/24 17:00 05/25/24 12:16 Cyclobenzaprine Hcl 5 Mg Tablet PO 5 mg TID [facility] Administration Furosemide 40 mg 05/23/24 17:00 05/25/24 09:00 Furosemide Inj 40 Mg/4 Ml Vial IV PUSH 40 mg BID [facility] Administration Ceftriaxone Sodium 2 gm in 100 mls @ 200 mls/hr 05/24/24 09:00 05/25/24 08:53 Rocephin 2 Gm/Ns 100 Ml IVPB 200 mls/hr Q24H [facility] Administration Dextrose/Sodium Chloride 1,000 mls @ 100 mls/hr 05/23/24 17:50 05/25/24 12:16 Dextrose 5% Sodium Chloride 0.45% IV CONT 100 mls/hr .Q10H MERRICK Administration Levothyroxine Sodium 25 mcg 05/24/24 08:15 05/25/24 06:19 Levothyroxine Sodium 25 Mcg Tablet PO Not Given DAILY@0630 [facility] Lidocaine 2 patch 05/24/24 09:00 05/25/24 08:53 Lidocaine 5% Patch TRANSDERM Not Given DAILY [facility] Lisinopril 20 mg 05/24/24 09:00 05/25/24 08:52 Lisinopril 20 Mg Tablet PO 20 mg DAILY [facility] Administration Metoprolol Tartrate 25 mg 05/24/24 09:00 05/25/24 08:51 Metoprolol Tartrate 25 Mg Tablet PO 25 mg DAILY [facility] Administration Morphine Sulfate 2 mg 05/24/24 15:29 Morphine Sulfate (*Crx) 2 Mg/Ml Inj IV PUSH Q4H PRN Pain Rated 7-10 Ondansetron HCl 4 mg 05/23/24 09:17 05/23/24 17:30 Ondansetron Inj 4 Mg/2 Ml Vial IV PUSH 4 mg Q4H PRN Administration Nausea Oxycodone HCl 5 mg 05/23/24 15:46 Oxycodone Hcl (*Crx) 5 Mg Tab Ir PO Q4H PRN Pain Rated 4-6 Pantoprazole Sodium 40 mg 05/23/24 17:00 05/25/24 08:52 Pantoprazole 40 Mg Tablet PO 40 mg BID MERRICK Administration Perflutren Lipid Microsphere 0 ml 05/23/24 16:10 Perflutren Lipid Microspheres 1.5 Ml Vial Diluted To 10 Ml Total Volume IV PUSH 05/26/24 16:11 ONCE PRN adequate visualization Protocol Rosuvastatin Calcium 10 mg 05/24/24 09:00 05/25/24 08:51 Rosuvastatin 10 Mg Tablet PO 10 mg DAILY [facility]ERRICK Administration Senna/Docusate Sodium 1 tab 05/23/24 17:00 05/25/24 08:52 Senna/Docusate Sodium Tablet PO 1 tab BID MERRICK Administration Radiology Results: ITS Impressions Chest X-Ray 05/23/24 05:30 Impression: 1: Masslike density overlying the right hilum, suspicious for malignancy. 2: Extensive bilateral airspace consolidation which may represent pneumonia or edema. 3: Small left pleural effusion. 4: Possible left clavicular fracture, although incompletely visualized. Chest CT 05/23/24 08:55 IMPRESSION: 1. Right upper lobe nodules measuring up to 2.2 cm, suspicious for metastatic disease. 2: Multifocal consolidation, consistent with pneumonia. 3: Bilateral pleural effusions, left greater than right. 4: Right hydronephrosis. Renal Ultrasound 05/23/24 19:50 IMPRESSION: 1. Severe right hydronephrosis. Increased right renal parenchymal echogenicity, consistent with nephropathy. 2. Small volume of ascites. Abdomen/Pelvis CT 05/23/24 21:44 IMPRESSION: 1. Diffuse lung disease, consistent with multifocal pneumonia, left worse than right. 2. Small right and moderate-sized left pleural effusions. 3. Severe right hydronephrosis and hydroureter. Hyperdense urine may be secondary to prior contrast administration or hematuria. 4. Small volume of ascites. 5. Subacute comminuted fractures of left acetabulum and left superior and inferior pubic rami. 6. Acute versus subacute left 10th rib fracture. 7. L2 burst fracture, likely acute or subacute. 8. Large volume of stool in the colon with distention of the rectum. Hospitalist MIPS Advance Care Plan I have confirmed that the patient's Advanced Care Plan is present, code status is documented, or surrogate decision maker is listed in patient medical record.: Yes Medication Reconciliation I have utilized all available resources to obtain, update and review the patients current medications (includes all prescriptions, OTC, herbals, cannabis, and nutritional supplements).: Yes
[2024-05-25] MEDS: MORPHINE SULFATE (*CRX) 2 MG/ML INJ IV PUSH ×2 (14:40→20:26)
[2024-05-26] VITALS (8 sets, daily range): BP systolic 142–161; BP diastolic 68–72; PULSE 71–90; RESP 18–20; TEMP 36.2–36.8; O2SAT 90–93
[2024-05-26] MEDS: ALBUTEROL SULFATE NEB 2.5 MG/3 ML INH INHALATION ×2 (07:48→13:06)
--- NOTE | 2024-05-26 07:58 | P.CDI_ITS ---
CDI Query Clarification Request CHF has been documented. Please specify type and acuity of heart failure if known. Clinical Indicators:BNP 05/23-5250, 4609 Treatment: Lasix 40 mg IV BID * Acute * Chronic * Acute on Chronic * Unknown * Systolic * Diastolic * Combined Systolic and Diastolic * Unknown <Medina Bazan RN - Last Filed: 05/26/24 08:00> Clarified Diagnosis Clarified Diagnosis: Unknown <Boy Shanks MD - Last Filed: 05/26/24 18:04>
--- NOTE | 2024-05-26 07:58 | WPDCDIQUERY2 ---
CDI Query Clarification Request CHF has been documented. Please specify type and acuity of heart failure if known. Clinical Indicators:BNP 05/23-5250, 4609 Treatment: Lasix 40 mg IV BID Acute Chronic Acute on Chronic Unknown Systolic Diastolic Combined Systolic and Diastolic Unknown <Medina Bazan RN - Last Filed: 05/26/24 08:00> Clarified Diagnosis Clarified Diagnosis: Unknown <Boy Shanks MD - Last Filed: 05/26/24 18:04>
[2024-05-26] MEDS: DEXTROSE 5%/0.45% SOD CHL 1,000 ML 100 ML IV CONT (08:04)
[2024-05-26] MEDS: cefTRIAXone 2 GM/NS 100 ML 2 GM/100 ML BAG IVPB (08:05)
[2024-05-26] MEDS: AZITHROMYCIN 250 MG TABLET 500 MG PO (08:05)
[2024-05-26] MEDS: ASPIRIN 81 MG ENTERIC TABLET PO (08:05)
[2024-05-26] MEDS: CYCLOBENZAPRINE HCL 5 MG TABLET PO (08:07)
[2024-05-26] MEDS: SENNA/DOCUSATE SODIUM TABLET 1 TAB PO (08:07)
[2024-05-26] MEDS: PANTOPRAZOLE 40 MG TABLET PO (08:08)
[2024-05-26] MEDS: lisinopriL 20 MG TABLET PO (08:08)
[2024-05-26] MEDS: METOPROLOL TARTRATE 25 MG TABLET PO (08:08)
[2024-05-26] MEDS: FUROSEMIDE INJ 40 MG/4 ML VIAL IV PUSH (08:08)
[2024-05-26] MEDS: ROSUVASTATIN 10 MG TABLET PO (08:09)
[2024-05-26] MEDS: MORPHINE SULFATE (*CRX) 2 MG/ML INJ IV PUSH (09:24)
[2024-05-26 11:45] LABS: SARS-CoV-2 RNA PCR Negative (Negative)
[2024-05-26] MEDS: oxyCODONE HCL (*CRX) 5 MG TAB IR PO (12:37)
--- NOTE | 2024-05-26 15:26 | PM.DS ---
DS: Admitting Diagnosis Discharge Date 05/26/2024 Admitting Diagnosis Shortness of Breath/Dyspnea DS: Discharge Diagnosis Discharge Diagnosis (1) Hydronephrosis: Qualifiers: Hydronephrosis type: unspecified Qualified Code(s): N13.30 - Unspecified hydronephrosis Code(s): N13.30 - Unspecified hydronephrosis Status: Acute (2) COPD (chronic obstructive pulmonary disease): Code(s): J44.9 - Chronic obstructive pulmonary disease, unspecified Status: Acute (3) Heart failure: Code(s): I50.9 - Heart failure, unspecified Status: Acute (4) Bilateral pleural effusion: Code(s): J90 - Pleural effusion, not elsewhere classified Status: Acute (5) Multiple fracture: Code(s): T07.XXXA - Unspecified multiple injuries, initial encounter Status: Acute (6) Urinary (tract) obstruction: Code(s): N13.9 - Obstructive and reflux uropathy, unspecified Status: Acute (7) Lung nodule: Code(s): R91.1 - Solitary pulmonary nodule Status: Acute DS: Summary Hospital Course Hospital Course: On 05/23: EMS notes that they were called for patient with shortness of breath who was initially hypoxic, saturating in the 70s on room air. History of COPD, supposed to be on oxygen but it was off and he reportedly keeps taking it off. He was initially altered, alert oriented x2. He denies any diarrhea. He is a new patient to the facility where he is coming from, having just been admitted yesterday. EMS noted that he improved 88% on 15 L non-rebreather mask. He had complained of pain all over although this appears to be chronic. He also has wounds all over.He notes that he has to have a bowel movement and he states that he has these frequently although they are formed, denies diarrhea. Patient states for his history of COPD he has never required BiPAP. He denies any chest pain but he has had a cough.It is initially unclear if patient is on anticoagulation. Pertinent Labs in ED: Hemoglobin 11.2, hematocrit 34.8, platelet 197, sodium 138, potassium 4.1, BUN 19, creatinine 1.08, BNP 5 250. Influenza, RSV, COVID negative Imaging : Chest CT: IMPRESSION: 1. Right upper lobe nodules measuring up to 2.2 cm, suspicious for metastatic disease. 2: Multifocal consolidation, consistent with pneumonia. 3: Bilateral pleural effusions, left greater than right. 4: Right hydronephrosis. EKG AFib The patient is evaluated at bedside . he reports living at home with help of intensive care ambulance paramedic. He has niece who lives in [place] but he says medical decision are made only by him.He reports of having multiple stents in the heart and carotid by pass surgery. He is a current smoker but denies using oxygen at home.Remote history of CVA as well. Patient is sometimes get angry during the evaluation and yelled at the intensive care ambulance paramedic. I insisted he should be respectful to hospital employees. Order renal ultrasound due to right hydronephrosis, echocardiogram, PSA and started lasix 40 mg IV BID. Consulted oncology and if need will consult Urology. Nurse called around 17:30 and reported he had episode of vomiting after his meal. 05/24: Discussed with the patient and he wants to do comfort care. Patient will be downgraded from IMU and discharge planning as per care coordination recommendation.Patient has multiple comorbid condition including hydronephrosis and hydroureter, moderate size left pleural effusion and small right pleural effusion, severe acute committed fracture of left acetabulum and left superior and inferior pubic rami, is acute versus subacute left 10th rib fracture, L2 burst fracture likely acute or subacute. Patient also evaluated by speech therapy even though there is no evidence of aspiration patient had episode of emesis after 5 minutes eating the food. Patient needs to be evaluated for for dysphagia. I spoke to him with nurse Jean to conform his goal of care. Patient is adamant he wants comfort care and no aggressive measures. Patient has multiple co-morbid condition including hydronephrosis and hydroureter, moderate size left pleural effusion and small right pleural effusion, severe acute committed fracture of left acetabulum and left superior and inferior pubic rami, acute versus subacute left 10th rib fracture, L2 burst fracture likely acute or subacute, right upper lobe nodules measuring 2.2 cm suspicious for metastatic disease, bilateral pleural effusion, left greater than right, evidence of hypothyroidism. Patient also evaluated by speech therapy even though there is no evidence of aspiration patient has episode of emesis after 5 minutes eating the food and needs to evaluated by GI. If patient needs aggressive therapy, patient needs multiple specialities including gastroenterology, Urology, Neurosurgery, Orthopedics, pulmonology, endocrinology, Oncology, Cardiology,wound care, PCP and Pain Management. Since patient opted for comfort care, his discharged with advice of consult palliative/hospice as outpatient. Status at Discharge Cognitive/behavioral status at discharge: Stable Time Spent with Patient Time attestation: Total time spent providing and/or coordinating discharge services:45 minutes Exam Narrative: GENERAL: Chronically ill-appearing, HEAD: Normocephalic, atraumatic. EYES: Non injected, non icteric ENT: Nares clear, no rhinorrhea or epistaxis. NECK: Supple. CHEST: Speaking in full sentences. Tachypneic. Coarse breath sounds though poor air movement HEART: Regular rate and rhythm. ABDOMEN: Soft, nondistended. EXTREMITIES: Normal range of motion. RUE edema. SKIN: Warm, dry. Multiple scattered wounds/abrasions, many weeping. NEURO: No focal deficits. Alert and oriented x4 for questions asked by RN at bedside. PSYCH: Congruent mood and affect. Cantankerous. Const: General: comfortable, poor hygiene and underweight Nutritional Appearance: underweight DS: Data Data Completed and Pending Labs on day of discharge: Labs from last 24 hours 05/26/24 11:01 SARS-CoV-2 RNA (RT-PCR) Negative Preliminary micro results at discharge 05/23/24 03:14 Blood Culture - Preliminary Blood 05/23/24 04:22 Blood Culture - Preliminary Blood Discharge Plan Discharge Attending physician on discharge: oBy Shanks Discharging Clinician: Boy Shanks Patient Disposition: [facility] Activity: other - see discharge instructions Diet: regular Wound Care Instructions: other - see discharge instructions Discharge Instructions: Patient opted for comfort care during hospitalization. Please consult hospice/palliative care as outpatient. Consider conservative management. Patient needs bedrest due to fracture and please consult Orthopedics and Physical therapy for further recommendations. Patient has multiple co-morbid condition including hydronephrosis and hydroureter, moderate size left pleural effusion and small right pleural effusion, severe acute committed fracture of left acetabulum and left superior and inferior pubic rami, acute versus subacute left 10th rib fracture, L2 burst fracture likely acute or subacute, right upper lobe nodules measuring 2.2 cm suspicious for metastatic disease, bilateral pleural effusion, left greater than right, evidence of hypothyroidism. Patient also evaluated by speech therapy even though there is no evidence of aspiration patient has episode of emesis after 5 minutes eating the food and needs to evaluated by GI. If patient needs aggressive therapy, patient needs multiple specialities including gastroenterology, Urology, Neurosurgery, Orthopedics, pulmonology, endocrinology, Oncology, Cardiology,wound care, PCP and Pain Management. Since patient opted for comfort care, please consult palliative/hospice as outpatient. Patient Instructions: Antibiotic Form Patient Language: Sami Stand Alone Forms: General Discharge Information Discharge Medications: New azithromycin [Zithromax] 250 mg Tablet 500 mg PO DAILY Qty: 2 0RF levothyroxine 25 mcg Tablet 25 mcg PO DAILY@0630 Qty: 30 0RF Continued aspirin [Adult Aspirin Regimen] 81 mg tablet,delayed release (DR/EC) 81 mg PO DAILY bisacodyl [Dulcolax (bisacodyl)] 10 mg suppository 10 mg RECTAL DAILY PRN (Reason: constipation) cyclobenzaprine 5 mg tablet 5 mg PO TID Eliquis 2.5 mg tablet 2.5 mg PO BID lidocaine 5 % adhesive patch,medicated 2 patch transdermal Q12H lisinopril 20 mg tablet 20 mg PO DAILY metoprolol tartrate 25 mg tablet 25 mg PO DAILY polyethylene glycol 3350 [Miralax] 17 gram powder in packet 17 g PO BID oxycodone 5 mg tablet 5 mg PO Q4H PRN (Reason: pain) rosuvastatin 20 mg tablet 10 mg PO DAILY pantoprazole [Protonix] [address] for susp in packet 40 mg PO BID senna-docusate sodium Tablet 1 tablet PO BID amoxicillin-pot clavulanate 875-125 mg tablet 1 tablet PO BID Qty: 8 0RF Discontinued cholecalciferol (vitamin D3) [Vitamin D3] 25 mcg (1,000 unit) capsule 25 mcg PO DAILY Date of admission: 05/23/24 09:17 Primary Care Provider: LissChivo Admitting Provider: Cameron Mcneal Attending physician on admission: Cameron Mcneal Condition: Stable
== END 2024-05-26 18:59 | disposition hospice, home (50) | DRG 536 ==
LOC: ANHED 09:29 → ANHIMU 16:15 → ANH2MED 05-26 12:03 → ANHIMU 05-27 13:35
PROVIDERS: Admitting Provider Internal Medicine; Emergency Provider Student in an Organized Health Care Education/Training Program; PCP Internal Medicine; Visit Provider General Practice
DX: S32.402A Unspecified fracture of left acetabulum, initial encounter for closed fracture (principal); J44.1 Chronic obstructive pulmonary disease with (acute) exacerbation; J90 Pleural effusion, not elsewhere classified; N13.30 Unspecified hydronephrosis; W19.XXXA Unspecified fall, initial encounter; Z51.5 Encounter for palliative care; E78.5 Hyperlipidemia, unspecified; E03.9 Hypothyroidism, unspecified; E55.9 Vitamin D deficiency, unspecified; F17.210 Nicotine dependence, cigarettes, uncomplicated; G89.4 Chronic pain syndrome; I11.0 Hypertensive heart disease with heart failure; I50.9 Heart failure, unspecified; K21.9 Gastro-esophageal reflux disease without esophagitis; M47.816 Spondylosis without myelopathy or radiculopathy, lumbar region; N13.9 Obstructive and reflux uropathy, unspecified; R32 Unspecified urinary incontinence; R91.1 Solitary pulmonary nodule; R09.02 Hypoxemia; R11.10 Vomiting, unspecified; Z95.5 Presence of coronary angioplasty implant and graft; Z79.82 Long term (current) use of aspirin; Z11.52 Encounter for screening for COVID-19; Z20.822 Contact with and (suspected) exposure to COVID-19; Z86.73 Personal history of transient ischemic attack (TIA), and cerebral infarction without residual deficits
CPT/HCPCS: 36415; 71045; 71250; 74176; 76775; 80053; 80061; 82803; 83036; 83605; 83735; 83880; 84153; 84439; 84443; 84480; 84484; 85025; 85027; 85380; 87040; 87635; 87637; 87641; 92610; 93005; 93306; 94640; 96365; 96366; 96375; 96376; 99285; A9270; J0456; J0696; J1940; J2270; J2405; J2919; J3370; J3475

== ENCOUNTER 2024-05-26 21:48 | Emergency (ER) | payer MEDICARE, SELFPAY ==
[2024-05-26 21:43] VITALS: BP 110/68; PULSE 104; RESP 22; O2SAT 95
--- OUTSIDE RECORDS SUMMARY | 2024-05-26 22:32 | XMS_ITS | CONTINUITY OF CARE DOCUMENT ---
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
--- NOTE | 2024-05-26 22:42 | ED_ITS ---
HPI - General Adult General Chief complaint: Shortness of Breath/Dyspnea Stated complaint: low o2 sat Time Seen by Provider: 05/26/24 22:00 History of Present Illness HPI narrative: Patient is 83-year-old gentleman who presents emergency department with chief complaint of low oxygen saturation. Patient is a resident of local detention and is to start hospice care in the morning the patient was just discharged from our facility the patient accidentally took his oxygen off the patient reports he did not want to come to the hospital reports that he wishes to continue his hospice care and does not want any aggressive treatments. Related Data Home Medications ?Medication ?Instructions ?Recorded ?Confirmed ?Last Taken ?Type apixaban 2.5 mg tablet (Eliquis) 2.5 mg PO BID 05/23/24 05/23/24 05/22/24 History aspirin 81 mg tablet,delayed 81 mg PO DAILY 05/23/24 05/23/24 05/22/24 History release (Adult Aspirin Regimen) bisacodyl 10 mg rectal suppository 10 mg RECTAL DAILY PRN constipation 05/23/24 05/23/24 Unknown History (Dulcolax (bisacodyl)) cyclobenzaprine 5 mg tablet 5 mg PO TID 05/23/24 05/23/24 05/22/24 History lidocaine 5 % topical patch 2 patch transdermal Q12H 05/23/24 05/23/24 05/22/24 History lisinopril 20 mg tablet 20 mg PO DAILY 05/23/24 05/23/24 05/22/24 History metoprolol tartrate 25 mg tablet 25 mg PO DAILY 05/23/24 05/23/24 05/22/24 History oxycodone 5 mg tablet 5 mg PO Q4H PRN pain 05/23/24 05/23/24 Unknown History pantoprazole 40 mg granules 40 mg PO BID 05/23/24 05/23/24 05/22/24 History delayed-release for susp in packet (Protonix) polyethylene glycol 3350 17 gram 17 g PO BID 05/23/24 05/23/24 Unknown History oral powder packet (Miralax) rosuvastatin 20 mg tablet 10 mg PO DAILY 05/23/24 05/23/24 05/22/24 History senna-docusate sodium tablet 1 tablet PO BID 05/23/24 05/23/24 05/22/24 History Allergies Allergy/AdvReac Type Severity Reaction Status Date / Time adhesive tape Allergy Unknown Verified 05/23/24 03:32 baclofen Allergy Unknown Verified 05/23/24 03:32 celecoxib Allergy Unknown Verified 05/23/24 03:32 clopidogrel (From Plavix) Allergy Unknown Verified 05/23/24 03:32 Iodinated Contrast Media Allergy Unknown Verified 05/23/24 03:32 isosorbide Allergy Unknown Verified 05/23/24 03:32 ketorolac Allergy Unknown Verified 05/23/24 03:32 rofecoxib Allergy Unknown Verified 05/23/24 03:32 tramadol Allergy Unknown Verified 05/23/24 03:32 Review of Systems Review of Systems: A 10 system review of systems was completed on the patient and is negative except for what is stated in the HPI. Nursing and ancillary documentation was reviewed. 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 Localized swelling, mass and lump, unspecified Other constipation Gastro-esophageal reflux disease without esophagitis Other secondary hypertension Chronic pain syndrome Vitamin D deficiency, unspecified Hypoxia O2 dependent COPD (chronic obstructive pulmonary disease) Hip fracture, left Social History Social History Social History: Never Code Status: No CPR per detention documentation; patient also states no intubation in conversation 05/23/24 Smoking packs per day: 0.5 Smoking cigarettes per day: 10.0 Smoking status: Current every day smoker Tobacco type: cigarettes Alcohol intake: former Substance use: never Do You Feel Safe in your Home?: Yes Lack of Transportation: No Lack of Food: Never True Current Housing: I Have Housing Concerned About Future Housing: No Difficulty Paying Gas/Electric Bills: No Difficulty Paying for Meds: No Currently Unemployed: No Education: High School Diploma/GED Difficulty w/ Childcare or Family Care: No Living arrangements: detention Additional living arrangements comments: [facility] 05[facility]/24 Occupation/Education: retired Spiritual care concerns: No Exam Narrative: GENERAL: Well-appearing, well-nourished, and in no acute distress. HEAD: Normocephalic, atraumatic. EYES: PERRLA and EOMI. ENT: Nares clear, no rhinorrhea or epistaxis. Mucous membranes moist. NECK: Supple. CHEST: Clear to auscultation. No respiratory distress. HEART: Regular rate and rhythm. No murmur heard. Normal peripheral pulses. ABDOMEN: Soft, nontender, nondistended, normal active bowel sounds. EXTREMITIES: Normal range of motion. No edema. SKIN: Warm, dry, no rash. NEURO: No focal deficits. Alert and oriented x3. PSYCH: Normal mood and affect. Course Vital Signs Vital signs: Vital Signs Pulse Rate 104 H 05/26/24 21:43 Respiratory Rate 22 H 05/26/24 21:43 Blood Pressure 110/68 05/26/24 21:43 Pulse Oximetry 95 05/26/24 21:43 Oxygen Delivery Nasal Cannula 05/26/24 21:43 Oxygen Flow Rate 6 05/26/24 21:43 Pulse Rate 104 H 05/26/24 21:43 Respiratory Rate 22 H 05/26/24 21:43 Blood Pressure 110/68 05/26/24 21:43 Pulse Oximetry 95 05/26/24 21:43 Oxygen Delivery Nasal Cannula 05/26/24 21:43 Oxygen Flow Rate 6 05/26/24 21:43 Medical Decision Making MDM Narrative Medical decision making narrative: The patient expressed that he is comfort measures only does not want to be treated in the emergency department and wishes to go back to his nursing facility where he can undergo hospice treatment. Hospice was contacted they stated they were originally scheduled to come out in the morning but reports that they can be called out tonight to meet him at the facility to manage his orders. Vital Signs Vital Signs: Vital Signs Pulse Rate 104 H 05/26/24 21:43 Respiratory Rate 22 H 05/26/24 21:43 Blood Pressure 110/68 05/26/24 21:43 Pulse Oximetry 95 05/26/24 21:43 Oxygen Delivery Nasal Cannula 05/26/24 21:43 Oxygen Flow Rate 6 05/26/24 21:43 Pulse Rate 104 H 05/26/24 21:43 Respiratory Rate 22 H 05/26/24 21:43 Blood Pressure 110/68 05/26/24 21:43 Pulse Oximetry 95 05/26/24 21:43 Oxygen Delivery Nasal Cannula 05/26/24 21:43 Oxygen Flow Rate 6 05/26/24 21:43 Discharge Plan Discharge Clinical Impression: Chronic hypoxic respiratory failure Patient Disposition: [facility] Jail[facility]Asst Living Condition: Stable Instructions: Antibiotic Form Additional Instructions: Your hospice program should be coming out to evaluate that he this evening or 1st thing in the morning. It is recommended the facility respect the patient's wishes to goals of care Patient Language: [place]an Prescriptions: No Action aspirin [Adult Aspirin Regimen] 81 mg tablet,delayed release (DR/EC) 81 mg PO DAILY bisacodyl [Dulcolax (bisacodyl)] 10 mg suppository 10 mg RECTAL DAILY PRN (Reason: constipation) cyclobenzaprine 5 mg tablet 5 mg PO TID Eliquis 2.5 mg tablet 2.5 mg PO BID lidocaine 5 % adhesive patch,medicated 2 patch transdermal Q12H lisinopril 20 mg tablet 20 mg PO DAILY metoprolol tartrate 25 mg tablet 25 mg PO DAILY polyethylene glycol 3350 [Miralax] 17 gram powder in packet 17 g PO BID oxycodone 5 mg tablet 5 mg PO Q4H PRN (Reason: pain) rosuvastatin 20 mg tablet 10 mg PO DAILY pantoprazole [Protonix] [address] for susp in packet 40 mg PO BID senna-docusate sodium Tablet 1 tablet PO BID azithromycin [Zithromax] 250 mg Tablet 500 mg PO DAILY Qty: 2 0RF levothyroxine 25 mcg Tablet 25 mcg PO DAILY@0630 Qty: 30 0RF amoxicillin-pot clavulanate 875-125 mg tablet 1 tablet PO BID Qty: 8 0RF Follow-up/Referrals: Gabby,MD Chivo [Primary Care Provider] - Time of Disposition: 23:19
--- NOTE | 2024-05-26 22:42 | PC.NURSE ---
Patient is refusing any and all care except for oxygen via [place]. Does not want breathing treatment. Does not want blood work. Repeatedly requesting to go back to the NH. Dr Malik aware.
--- NOTE | 2024-05-26 23:07 | PC.NURSE ---
Spoke with Rose with [facility]. Stated if the patient returns to the NH tonight, they will send someone to the NH to evaluate him tonight instead of tomorrow morning. Dr Malik aware.
[2024-05-27 02:01] VITALS: BP 157/88; PULSE 101; RESP 22; O2SAT 95
--- NOTE | 2024-05-27 02:35 | PC.NURSE ---
Report given to [facility], [place] to notify them that the patient will be returning; awaiting EMS ride back to facility.
[2024-05-27 06:28] VITALS: BP 150/59; PULSE 99; RESP 20; O2SAT 91
[2024-05-27 08:59] VITALS: BP 144/54; PULSE 72; RESP 18; O2SAT 91
[2024-05-27 09:45] VITALS: O2SAT 88
--- NOTE | 2024-05-27 09:45 | PC.NURSE ---
pt sating 88% on 6L NC. Dr. Mason made aware. states to just leave him on the 6L due to pt being comfort measures only. per previous RN, lOiva is to come to group home today for plan of care.
[2024-05-27 11:10] VITALS: BP 124/64; PULSE 89; RESP 19; O2SAT 90
== END 2024-05-27 11:12 | disposition hospice, home (50) ==
PROVIDERS: Emergency Provider Emergency Medicine; PCP Internal Medicine
DX: J96.11 Chronic respiratory failure with hypoxia (principal); I15.8 Other secondary hypertension; J44.9 Chronic obstructive pulmonary disease, unspecified; E78.49 Other hyperlipidemia; E55.9 Vitamin D deficiency, unspecified; K21.9 Gastro-esophageal reflux disease without esophagitis; F17.210 Nicotine dependence, cigarettes, uncomplicated; Z99.81 Dependence on supplemental oxygen; Z79.82 Long term (current) use of aspirin; Z79.01 Long term (current) use of anticoagulants; Z79.899 Other long term (current) drug therapy
CPT/HCPCS: 99283